=== PATIENT | male | born 1995 | race Two or more races ===

== ENCOUNTER 2021-09-08 03:06 | Emergency (ER) | payer MEDICAID ==
[~2021-09-08] VITALS: Ht 167.6 cm; Wt 136.1 kg
[2021-09-08] MEDS ORDERED: KETOROLAC TROMETH 60MG/2ML VIAL IM ONE (07:15)
[2021-09-08 07:35] VITALS: BP 132/76
== END 2021-09-08 07:48 | disposition home or self-care (01) ==
LOC: ER 03:06
DX: S52.121A Displaced fracture of head of right radius, initial encounter for closed fracture (principal); S80.01XA Contusion of right knee, initial encounter; S00.83XA Contusion of other part of head, initial encounter; W18.39XA Other fall on same level, initial encounter; Y93.89 Activity, other specified; Y92.89 Other specified places as the place of occurrence of the external cause; Y99.8 Other external cause status
CPT/HCPCS: 29105; 70140; 73020; 73060; 73070; 73090; 73560; 73590; 96372; 99284; J1885

== ENCOUNTER 2022-01-12 22:19 | Inpatient (IN) | payer MEDICAID ==
[~2022-01-12] VITALS: Ht 177.8 cm; Wt 181.0 kg
[2022-01-12] MEDS ORDERED: ACETAMINOPHEN 325 MG TAB PO ONE ×2 (22:45)
[2022-01-12] MEDS ORDERED: SODIUM CHLORIDE 0.9% 1,000 ML IV ONE (22:45)
[2022-01-12 23:04] LABS: Basophils # (auto) 0 10 ^3/uL (0-0.2); Basophils % (auto) 0.3 % (0.0-2.0); Eosinophils # (auto) 0 10 ^3/uL (0-0.8); Eosinophils % (auto) 0.3 % (0.0-7.0); Hematocrit 43.4 % (41.0-53.0); Hemoglobin 14.1 g/dL (13.5-17.5); Lymphocytes % (auto) 5.8 % (10.0-50.0); Mean Corpuscular Hemoglobin 24.9 pg (28.0-32.0); Mean Corpuscular Hgb Conc. 32.4 g/dL (32.0-36.0); Mean Corpuscular Volume 76.8 fL (80.0-100.0); Monocytes # (auto) 1.1 10 ^3/uL (0-1.3); Monocytes % (auto) 6.5 % (0.0-12.0); Neutrophils # (auto) 15.3 10 ^3/uL (1.6-8.6); Neutrophils % (auto) 87.1 % (37.0-80.0); Nucleated Red Blood Cells % 0.2 %; Red Blood Cells 5.65 10^6/uL (4.5-5.90); Red Cell Distribution Width 18.5 % (11.8-14.3); White Blood Cell 17.5 10^3/uL (4.4-10.8)
[2022-01-12 23:23] LABS: Albumin 3.1 g/dL (3.4-5.0); BUN/Creatinine Ratio 12.9; Calcium 8.6 mg/dL (8.5-10.1); Magnesium 1.8 mg/dL (1.6-2.6); Potassium 3.4 mmol/L (3.5-5.1)
[2022-01-12 23:29] LABS: Bilirubin, Total 0.4 mg/dL (0.2-1.0); Total Protein 7.5 g/dL (6.4-8.2)
[2022-01-13 01:12] LABS: Lactic Acid w/Reflex 2.8 mmol/L (0.4-2.0)
[2022-01-13] MEDS ORDERED: SODIUM CHLORIDE 0.9% 1,000 ML IV ONE (01:15)
[2022-01-13] MEDS ORDERED: PIPERACILLIN-TAZOB 2.25GM 50 ML IV ONE (02:15)
[2022-01-13] MEDS ORDERED: VANCOMYCIN 1GM/250ML 250 ML IV ONE ×2 (02:15)
[2022-01-13 03:19] LABS: Urine Bacteria NONE SEEN /hpf (None Seen); Urine Blood Negative /uL (Negative); Urine Hyaline Cast MOD /lpf (0 - 2); Urine Mucus FEW (None Seen); Urine Specific Gravity 1.023 (1.001-1.035); Urine WBC 66 /hpf (0 - 3)
[2022-01-13] MEDS ORDERED: ACETAMINOPHEN 325 MG TAB PO ONE (06:30)
[2022-01-13] MEDS ORDERED: ONDANSETRON HCL 4 MG/2 ML VIAL IV PRN (07:15)
[2022-01-13] MEDS ORDERED: MORPHINE SULFATE INJECTION 2 MG/ML SYRG IV PRN (07:15)
[2022-01-13] MEDS ORDERED: VANCOMYCIN PER PHARMACY 0 MG IV SCH (07:15)
[2022-01-13] MEDS ORDERED: ACETAMINOPHEN 325 MG TAB PO PRN (07:15)
[2022-01-13] MEDS ORDERED: NITROGLYCERIN 0.4 MG SL TAB SL PRN (07:15)
[2022-01-13] MEDS ORDERED: ENOXAPARIN SOD 40 MG/0.4 ML SYRINGE SC SCH (10:00)
[2022-01-13] MEDS: PIPERACILLIN-TAZOB 3.375GM 100 ML IV SCH ×3 (10:00→21:21)
[2022-01-13 10:08] VITALS: BP 131/82
[2022-01-13 10:28] VITALS: BP 113/82
[2022-01-13 12:00] VITALS: BP 130/70
[2022-01-13 12:00] LABS: BUN/Creatinine Ratio 15.4; Calcium 7.9 mg/dL (8.5-10.1); Potassium 3.7 mmol/L (3.5-5.1)
[2022-01-13] MEDS: METOPROLOL TARTRATE 25 MG TAB PO SCH ×2 (12:00→21:21)
[2022-01-13] MEDS: ACETAMINOPHEN 325 MG TAB PO PRN ×3 (12:09→21:22)
[2022-01-13 12:27] LABS: Basophils # (auto) 0 10 ^3/uL (0-0.2); Basophils % (auto) 0.3 % (0.0-2.0); Eosinophils # (auto) 0 10 ^3/uL (0-0.8); Hematocrit 39.8 % (41.0-53.0); Hemoglobin 12.8 g/dL (13.5-17.5); Lymphocytes # (auto) 0.6 10 ^3/uL (0.4-5.4); Lymphocytes % (auto) 3.5 % (10.0-50.0); Mean Corpuscular Hemoglobin 24.6 pg (28.0-32.0); Mean Corpuscular Hgb Conc. 32.1 g/dL (32.0-36.0); Mean Corpuscular Volume 76.9 fL (80.0-100.0); Monocytes # (auto) 0.8 10 ^3/uL (0-1.3); Monocytes % (auto) 4.5 % (0.0-12.0); Neutrophils # (auto) 16.5 10 ^3/uL (1.6-8.6); Neutrophils % (auto) 91.7 % (37.0-80.0); Nucleated Red Blood Cells % 0.1 %; Red Blood Cells 5.18 10^6/uL (4.5-5.90)
[2022-01-13] MEDS: METOPROLOL TARTRATE 1MG/1ML-5ML VIAL IV PRN (12:27)
[2022-01-13] MEDS: FUROSEMIDE 40 MG/4 ML VIAL IV SCH (13:45)
[2022-01-13 16:00] VITALS: BP 144/90
[2022-01-13] MEDS: VANCOMYCIN 1GM/250ML 250 ML IV SCH (17:00)
[2022-01-13 22:00] VITALS: BP 120/57
[2022-01-14] MEDS ORDERED: VANCOMYCIN 1GM/250ML 250 ML IV ONE (02:14)
[2022-01-14] MEDS: VANCOMYCIN 1GM/250ML 250 ML IV SCH ×2 (02:47→17:00)
[2022-01-14] MEDS: PIPERACILLIN-TAZOB 3.375GM 100 ML IV SCH ×5 (04:05→21:25)
[2022-01-14 05:00] VITALS: BP 119/49
[2022-01-14] MEDS: METOPROLOL TARTRATE 1MG/1ML-5ML VIAL IV PRN (05:02)
[2022-01-14] MEDS: ACETAMINOPHEN 325 MG TAB PO PRN ×3 (05:48→19:12)
[2022-01-14 07:58] LABS: Albumin 2.5 g/dL (3.4-5.0); Calcium 8.1 mg/dL (8.5-10.1)
[2022-01-14 08:00] VITALS: BP 114/95
[2022-01-14 08:01] LABS: BUN/Creatinine Ratio 14.1; Bilirubin, Total 0.7 mg/dL (0.2-1.0); Total Protein 7.4 g/dL (6.4-8.2)
[2022-01-14 08:14] LABS: Potassium 3.4 mmol/L (3.5-5.1)
[2022-01-14 08:34] LABS: Basophils # (auto) 0.1 10 ^3/uL (0-0.2); Basophils % (auto) 0.5 % (0.0-2.0); Eosinophils # (auto) 0 10 ^3/uL (0-0.8); Eosinophils % (auto) 0.1 % (0.0-7.0); Hemoglobin 12.9 g/dL (13.5-17.5); Lymphocytes # (auto) 0.9 10 ^3/uL (0.4-5.4); Lymphocytes % (auto) 5.9 % (10.0-50.0); Mean Corpuscular Hemoglobin 25.2 pg (28.0-32.0); Mean Corpuscular Hgb Conc. 33.1 g/dL (32.0-36.0); Mean Corpuscular Volume 76.2 fL (80.0-100.0); Monocytes # (auto) 0.9 10 ^3/uL (0-1.3); Monocytes % (auto) 5.7 % (0.0-12.0); Neutrophils # (auto) 13.4 10 ^3/uL (1.6-8.6); Neutrophils % (auto) 87.8 % (37.0-80.0); Nucleated Red Blood Cells % 0.1 %; Red Blood Cells 5.12 10^6/uL (4.5-5.90); Red Cell Distribution Width 18.8 % (11.8-14.3); White Blood Cell 15.2 10^3/uL (4.4-10.8)
[2022-01-14] MEDS: ENOXAPARIN SOD 40 MG/0.4 ML SYRINGE SC SCH (10:00)
[2022-01-14] MEDS: METOPROLOL TARTRATE 25 MG TAB PO SCH ×3 (10:00→21:25)
[2022-01-14] MEDS: FUROSEMIDE 40 MG/4 ML VIAL IV SCH (10:00)
[2022-01-14 13:00] VITALS: BP 111/64
[2022-01-14 16:54] VITALS: BP 135/84
[2022-01-14 22:00] VITALS: BP 125/88
[2022-01-15] MEDS: ACETAMINOPHEN 325 MG TAB PO PRN ×3 (00:19→17:13)
[2022-01-15] MEDS: VANCOMYCIN 1GM/250ML 250 ML IV SCH ×2 (01:24→10:08)
[2022-01-15] MEDS: PIPERACILLIN-TAZOB 3.375GM 100 ML IV SCH ×2 (03:31→10:08)
[2022-01-15 04:34] VITALS: BP 123/76
[2022-01-15 05:00] VITALS: BP 122/85
[2022-01-15 05:50] LABS: Eosinophils # (auto) 0 10 ^3/uL (0-0.8); Lymphocytes # (auto) 0.9 10 ^3/uL (0.4-5.4); Neutrophils # (auto) 6.6 10 ^3/uL (1.6-8.6); Nucleated Red Blood Cells % 0.1 %
[2022-01-15 05:54] LABS: Basophils # (auto) 0.1 10 ^3/uL (0-0.2); Basophils % (auto) 1.1 % (0.0-2.0); Eosinophils % (auto) 0.2 % (0.0-7.0); Hematocrit 36.2 % (41.0-53.0); Hemoglobin 12.3 g/dL (13.5-17.5); Lymphocytes % (auto) 10.4 % (10.0-50.0); Mean Corpuscular Hemoglobin 25.8 pg (28.0-32.0); Mean Corpuscular Hgb Conc. 33.8 g/dL (32.0-36.0); Mean Corpuscular Volume 76.1 fL (80.0-100.0); Monocytes # (auto) 1.1 10 ^3/uL (0-1.3); Neutrophils % (auto) 75.3 % (37.0-80.0); Red Blood Cells 4.76 10^6/uL (4.5-5.90); Red Cell Distribution Width 18.2 % (11.8-14.3); White Blood Cell 8.8 10^3/uL (4.4-10.8)
[2022-01-15 06:11] LABS: Potassium 3.5 mmol/L (3.5-5.1)
[2022-01-15 06:19] LABS: BUN/Creatinine Ratio 14.1; Calcium 8.9 mg/dL (8.5-10.1)
[2022-01-15 09:00] VITALS: BP 118/59
[2022-01-15] MEDS: ENOXAPARIN SOD 40 MG/0.4 ML SYRINGE SC SCH (10:06)
[2022-01-15] MEDS: FUROSEMIDE 40 MG/4 ML VIAL IV SCH (10:07)
[2022-01-15] MEDS: METOPROLOL TARTRATE 25 MG TAB PO SCH ×2 (10:07→21:38)
[2022-01-15] MEDS: levoFLOXacin 500MG 100 ML IV SCH (11:30)
[2022-01-15 12:55] VITALS: BP 113/69
[2022-01-15 17:00] VITALS: BP 105/57
[2022-01-15 22:27] VITALS: BP 117/61
[2022-01-16] MEDS: ACETAMINOPHEN 325 MG TAB PO PRN ×2 (03:13→09:27)
[2022-01-16 05:06] VITALS: BP 110/56
[2022-01-16 06:34] LABS: Basophils # (auto) 0 10 ^3/uL (0-0.2); Basophils % (auto) 0.3 % (0.0-2.0); Eosinophils # (auto) 0 10 ^3/uL (0-0.8); Eosinophils % (auto) 0.3 % (0.0-7.0); Hematocrit 37.7 % (41.0-53.0); Hemoglobin 12.4 g/dL (13.5-17.5); Lymphocytes # (auto) 1.1 10 ^3/uL (0.4-5.4); Lymphocytes % (auto) 15.3 % (10.0-50.0); Mean Corpuscular Hemoglobin 25.3 pg (28.0-32.0); Mean Corpuscular Hgb Conc. 32.9 g/dL (32.0-36.0); Mean Corpuscular Volume 76.9 fL (80.0-100.0); Monocytes # (auto) 1.3 10 ^3/uL (0-1.3); Monocytes % (auto) 17.9 % (0.0-12.0); Neutrophils # (auto) 4.9 10 ^3/uL (1.6-8.6); Neutrophils % (auto) 66.2 % (37.0-80.0); Nucleated Red Blood Cells % 0.1 %; Red Blood Cells 4.91 10^6/uL (4.5-5.90); Red Cell Distribution Width 18.4 % (11.8-14.3); White Blood Cell 7.4 10^3/uL (4.4-10.8)
[2022-01-16 06:52] LABS: Potassium 3.5 mmol/L (3.5-5.1)
[2022-01-16 06:57] LABS: BUN/Creatinine Ratio 16.2; Calcium 8.8 mg/dL (8.5-10.1)
[2022-01-16 09:00] VITALS: BP 128/78
[2022-01-16] MEDS: METOPROLOL TARTRATE 25 MG TAB PO SCH ×2 (09:28→22:36)
[2022-01-16] MEDS: ENOXAPARIN SOD 40 MG/0.4 ML SYRINGE SC SCH (09:30)
[2022-01-16] MEDS: FUROSEMIDE 40 MG/4 ML VIAL IV SCH (09:30)
[2022-01-16] MEDS: levoFLOXacin 500MG 100 ML IV SCH (09:31)
[2022-01-16 12:58] VITALS: BP 148/89
[2022-01-16] MEDS ORDERED: LEVO500T31 PO (14:28)
[2022-01-16] MEDS ORDERED: FURO1TAB31 PO (14:28)
[2022-01-16] MEDS ORDERED: MET25T PO (14:28)
[2022-01-16 16:48] VITALS: BP 134/82
[2022-01-16 17:40] VITALS: BP 134/82
[2022-01-16 21:59] VITALS: BP 135/75
[2022-01-16] MEDS ORDERED: ACETAMINOPHEN 325 MG TAB PO PRN (22:45)
[2022-01-17 04:55] VITALS: BP 143/82
[2022-01-17 05:10] LABS: Hemoglobin 11.7 g/dL (13.5-17.5)
[2022-01-17 05:12] LABS: Hematocrit 34.9 % (41.0-53.0); Mean Corpuscular Hemoglobin 25.4 pg (28.0-32.0); Mean Corpuscular Hgb Conc. 33.4 g/dL (32.0-36.0); Red Blood Cells 4.59 10^6/uL (4.5-5.90); Red Cell Distribution Width 18.5 % (11.8-14.3); White Blood Cell 8.3 10^3/uL (4.4-10.8)
[2022-01-17 05:16] LABS: Basophils % (manual) 0 (0.0-2.0); Blast Cells 0; Metamyelocytes % 0; Promyelocytes % 0; Reactive Lymphocytes 0
[2022-01-17 05:33] LABS: Calcium 8.4 mg/dL (8.5-10.1); Potassium 3.2 mmol/L (3.5-5.1)
[2022-01-17 05:35] LABS: BUN/Creatinine Ratio 16.9
[2022-01-17 06:44] LABS: Band Neutrophils % (manual) 7; Eosinophils % (manual) 1 (0-7); Monocytes % (manual) 18 (0-12); Myelocytes % 1
[2022-01-17 06:45] LABS: Lymphocytes % (manual) 18 (10.0-50.0)
[2022-01-17 09:00] VITALS: BP 125/79
[2022-01-17] MEDS: METOPROLOL TARTRATE 25 MG TAB PO SCH ×2 (09:26→21:50)
[2022-01-17] MEDS: FUROSEMIDE 40 MG/4 ML VIAL IV SCH (09:27)
[2022-01-17] MEDS: ENOXAPARIN SOD 40 MG/0.4 ML SYRINGE SC SCH (09:27)
[2022-01-17] MEDS: levoFLOXacin 500MG 100 ML IV SCH (09:28)
[2022-01-17 13:00] VITALS: BP 133/78
[2022-01-17 17:00] VITALS: BP 133/78
[2022-01-17 22:00] VITALS: BP 120/65
[2022-01-18 05:00] VITALS: BP 121/66
[2022-01-18 06:26] LABS: Basophils # (auto) 0 10 ^3/uL (0-0.2); Eosinophils # (auto) 0.1 10 ^3/uL (0-0.8); Lymphocytes # (auto) 1.6 10 ^3/uL (0.4-5.4)
[2022-01-18 06:29] LABS: Basophils % (auto) 0.3 % (0.0-2.0); Eosinophils % (auto) 0.8 % (0.0-7.0); Hematocrit 35.8 % (41.0-53.0); Lymphocytes % (auto) 19.7 % (10.0-50.0); Mean Corpuscular Hemoglobin 25.7 pg (28.0-32.0); Mean Corpuscular Hgb Conc. 33.6 g/dL (32.0-36.0); Mean Corpuscular Volume 76.7 fL (80.0-100.0); Monocytes # (auto) 1.4 10 ^3/uL (0-1.3); Monocytes % (auto) 16.8 % (0.0-12.0); Neutrophils # (auto) 5.1 10 ^3/uL (1.6-8.6); Neutrophils % (auto) 62.4 % (37.0-80.0); Red Blood Cells 4.68 10^6/uL (4.5-5.90); Red Cell Distribution Width 18.4 % (11.8-14.3); White Blood Cell 8.2 10^3/uL (4.4-10.8)
[2022-01-18 07:01] LABS: Potassium 3.4 mmol/L (3.5-5.1)
[2022-01-18 09:00] VITALS: BP 155/88
[2022-01-18] MEDS: levoFLOXacin 500MG 100 ML IV SCH (09:50)
[2022-01-18] MEDS: FUROSEMIDE 40 MG/4 ML VIAL IV SCH (09:50)
[2022-01-18] MEDS: ENOXAPARIN SOD 40 MG/0.4 ML SYRINGE SC SCH (09:51)
[2022-01-18] MEDS: METOPROLOL TARTRATE 25 MG TAB PO SCH (09:51)
[2022-01-18 13:00] VITALS: BP 138/88
[2022-01-18 17:00] VITALS: BP 119/64
== END 2022-01-18 19:40 | disposition home health service (06) | DRG 720 ==
LOC: EDBD 22:19 → ER 22:19 → TELE 01-13 07:01 → TELE-CENTR 01-13 10:10
PROVIDERS: ADMIT Hospitalist; ATTEND Internal Medicine
DX: A41.9 Sepsis, unspecified organism (principal); J96.01 Acute respiratory failure with hypoxia; I50.33 Acute on chronic diastolic (congestive) heart failure; I47.1 Supraventricular tachycardia; N39.0 Urinary tract infection, site not specified; Z20.822 Contact with and (suspected) exposure to COVID-19; E66.2 Morbid (severe) obesity with alveolar hypoventilation; Z68.43 Body mass index [BMI] 50.0-59.9, adult
CPT/HCPCS: 36415; 80048; 80053; 80202; 81001; 83605; 83735; 83880; 84484; 85007; 85025; 85027; 87040; 87086; 93306; 93970; 96361; 96365; 96366; 96368; 96375; 97163; G0378; J1956; J2405; J2543

== ENCOUNTER 2024-05-17 15:46 | Emergency (ER) | payer MEDICAID ==
[~2024-05-17] VITALS: Ht 177.8 cm; Wt 195.7 kg
[~2024-05-17 15:46] MED LIST: FURO1TAB31 PO; LEVO500T31 PO; MET25T PO
[2024-05-17 16:22] VITALS: BP 163/96; PULSE 120; RESP 20; TEMP 97.8; O2SAT 95
[2024-05-17] MEDS: KETOROLAC TROMETH 60MG/2ML VIAL IM ONE (17:03)
[2024-05-17] MEDS ORDERED: LISI20TA56 PO (17:43)
== END 2024-05-17 17:46 | disposition home or self-care (01) ==
LOC: ER 15:55
DX: G89.29 Other chronic pain (principal); M54.50 Low back pain, unspecified; M79.662 Pain in left lower leg; F22 Delusional disorders; I10 Essential (primary) hypertension; Z76.0 Encounter for issue of repeat prescription
CPT/HCPCS: 93971; 96372; 99285; J1885

== ENCOUNTER 2024-12-18 15:02 | Inpatient (IN) | payer MEDICAID ==
[~2024-12-18] VITALS: Ht 177.8 cm; Wt 195.6 kg
[~2024-12-18 15:02] MED LIST changes: +LISI20TA56 PO
--- NOTE | 2024-12-18 15:38 | ED.PDOC ---
History of Present Illness HPI Comments This is a 29-year-old male who comes in with chief complaint of high blood pressure. The patient has saw the primary care doctor today and was referred to the emergency department's for further evaluation. The patient states that he has been having some lower leg swelling but when they arrived at the doctor, the patient was blood pressure was significantly elevated. Chief Complaint: High Blood Pressure Time Seen by MD: 15:13 Reviewed Notes: Nurses Notes, Medications, Allergies (No allergies) Allergies: Coded Allergies: NO KNOWN ALLERGIES (Unverified , 09/08/21) Home Meds Active Scripts Lisinopril (Lisinopril) 20 Mg Tab, 1 TAB PO DAILY, #30 TAB Prov:CONNOR MASSEY 05/17/24 Furosemide (Lasix) 40 Mg Tab, 40 MG PO DAILY, #30 TAB Prov:RITCHIE GRIDER MD 01/16/22 Metoprolol Tartrate (Lopressor) 25 Mg Tb, 12.5 MG PO BID, #15 TAB Prov:RITCHIE GRIDER MD 01/16/22 Levofloxacin (Levaquin) 500 Mg Tab, 500 MG PO DAILY, #10 TAB Prov:RITCHIE GRIDER MD 01/16/22 Information Source: Patient Mode of Arrival: Ambulatory Severity: Moderate Timing: Hours Duration: Since onset Prehospital treatment: None Location: Leg swelling with shortness a breath Past Medical History PAST MEDICAL HISTORY: CHF, HTN, Denies Surgical History: Denies all surgeries Family History Family History: Reviewed,noncontributory to illness Social History Smoker: Non-Smoker Alcohol: Denies ETOH Use Drugs: Denies Drug Use Lives In: Home Constitutional: reports: weakness; denies: chills, diaphoresis, fatigue, fever, malaise, sweats, others EENTM: denies: blurred vision, double vision, ear bleeding, ear discharge, ear drainage, ear pain, ear ringing, eye pain, eye redness, hearing loss, mouth pain, mouth swelling, nasal discharge, nose bleeding, nose congestion, nose pain, photophobia, tearing, throat pain, throat swelling, voice changes, others Respiratory: reports: shortness of breath; denies: cough, hemoptysis, orthopnea, SOB at rest, SOB with excertion, stridor, wheezing, others Cardiovascular: denies: chest pain, dizzy spells, diaphoresis, Dyspnea on exertion, edema, irregular heart beat, left arm pain, lightheadedness, palpitations, PND, syncope, others Gastrointestinal: denies: abdomen distended, abdominal pain, blood streaked bowels, constipated, diarrhea, dysphagia, difficulty swallowing, hematemesis, melena, nausea, poor appetite, poor fluid intake, rectal bleeding, rectal pain, vomiting, others Genitourinary: denies: burning, dysuria, flank pain, frequency, hematuria, incontinence, penile discharge, penile sore, pain, testicle pain, testicle swelling, urgency, others Neurological: denies: dizziness, fainting, headache, left sided numbness, left sided weakness, numbness, paresthesia, pre-existing deficit, right sided numbness, right sided weakness, seizure, speech problems, tingling, tremors, weakness, others Musculoskeletal: reports: others (Leg swelling); denies: back pain, gout, joint pain, joint swelling, muscle pain, muscle stiffness, neck pain Integumetry: denies: bruises, change in color, change in hair/nails, dryness, laceration, lesions, lumps, rash, wounds, others Allergic/Immunocompromised: denies: Difficulty Healing, Frequent Infections, Hives, Itching, others Hematologic/Lymphatic: denies: anemia, blood clots, easy bleeding, easy bruising, swollen glands, others Endocrine: denies: excessive hunger, excessive sweating, excessive thirst, excessive urination, flushing, intolerance to cold, intolerance to heat, unexplained weight gain, unexplained weight loss, others Psychiatric: denies: anxiety, bipolar disorder, depression, hopeless, panic disorder, schizophrenia, sleepless, suicidal, others All Other Systems: Reviewed and Negative Physical Exam General Appearance: Moderate Distress, Obese HEENT: Normal ENT Inspection, Pharynx Normal, TMs Normal Neck: Full Range of Motion, Non-Tender, Normal, Normal Inspection Respiratory: Chest Non-Tender, Lungs Clear, No Accessory Muscle Use, No Respiratory Distress, Normal Breath Sounds Cardiovascular: No Edema, No JVD, No Murmur, No Gallop, Normal Peripheral Pulses, Regular Rate/Rhythm Breast Exam: Deferred Gastrointestinal: No Organomegaly, Non Tender, No Pulsatile Mass, Normal Bowel Sounds, Soft Genitalia: Deferred Pelvic: Deferred Rectal: Deferred Extremities: Decreased range of motion, No calf tenderness, Normal capillary refill, Pedal edema Musculoskeletal : Apperance: Normal Neurologic: Alert, 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 Was a procedure done?: No EKG EKG : Pulse Rate (adult): 94 Prim: LAD Cardiac Rhythm: NSR Block: None ST: Nonsp Differential Dx Considerations may include: Accelerated hypertension, acute on chronic diastolic heart failure, ACS, DC X-Ray, Labs, Meds, VS Vital Signs Date Time Temp Pulse Resp B/P (MAP) Pulse Ox O2 Delivery O2 Flow Rate FiO2 12/18/24 17:06 94 12/18/24 16:53 99 16 98 Room Air* 0 21 12/18/24 16:36 186/111 12/18/24 16:09 99 20 94 Room Air 12/18/24 16:09 99.0 99 20 194/122 (146) 94 99.0 12/18/24 16:08 194/122 12/18/24 15:46 99.0 101 18 172/100 (124) 94 Lab Test 12/18/24 16:40 12/18/24 15:57 Range/Units White Blood Count Pending Red Blood Count Pending Hemoglobin Pending Hematocrit Pending Mean Corpuscular Volume Pending Mean Corpuscular Hemoglobin Pending Mean Corpuscular Hemoglobin Concent Pending Red Cell Distribution Width Pending Platelet Count Pending Mean Platelet Volume Pending Neutrophils (%) (Auto) Pending Lymphocytes (%) (Auto) Pending Monocytes (%) (Auto) Pending Basophils (%) (Auto) Pending Neutrophils # (Auto) Pending Lymphocytes # (Auto) Pending Monocytes # (Auto) Pending Sodium Level 141 136-145 mmol/L Potassium Level 4.5 3.5-5.1 mmol/L Chloride Level 103 98-107 mmol/L Carbon Dioxide Level 32 H 20-31 mmol/L Anion Gap 6 5-15 Blood Urea Nitrogen 10 9-23 mg/dL Creatinine 0.67 L 0.700-1.30 mg/dL Glomerular Filtration Rate Calc 128 >90 mL/min BUN/Creatinine Ratio 14.9 10.0-20.0 Serum Glucose 98 74-106 mg/dL Calcium Level 9.8 8.7-10.4 mg/dL B-Type Natriuretic Peptide 7.37 0-100 pg/mL Current Medications Medications (Trade) Dose Ordered Sig/Capri Route Start Time Stop Time Status Last Admin Furosemide (Lasix Injection) 40 mg ONCE ONCE IV 12/18/24 15:30 12/18/24 15:31 DC 12/18/24 16:36 Clonidine HCl (Catapres Tablet) 0.2 mg ONCE ONCE PO 12/18/24 15:30 12/18/24 15:31 DC 12/18/24 16:08 CHEST RADIOGRAPH IMPRESSION: Pulmonary vascular congestion The patient was given Lasix 40 mg IV push The patient was also given clonidine 0.2 mg by mouth The patient had an elevated blood pressure and it still remains elevated The patient will be admitted with a diagnosis of acute on chronic diastolic heart failure The patient was also being admitted with accelerated hypertension Images Reviewed?: Images reviewed and evaluated by me Time of 1ST Reevaluation: 15:45 Reevaluation 1ST: Unchanged Patient Education/Counseling: Diagnosis, Treatment, Prognosis Family Education/Counseling: Diagnosis, Treatment, Prognosis Additional Information - I reviewed the following notes from patient's past medical encounters: - The following tests were ordered, and results were reviewed by me: (Labs, X- Ray, EKG): cbc, bmp, ua, chest x-ray, ekg x3 - Additional information was gathered from interviewing the following independent Historian: (Family, Other Providers, EMT): family member - I reviewed and agreed with the following test results read by other provider: (X-ray, CT, US): radiologist - I discussed treatments and results with medical personnel and: (consultants, family): none Departure 1 Departure Time of Disposition: 16:40 Impression: Primary Impression: Acute on chronic diastolic heart failure Disposition: 09 ADMITTED INPATIENT Admit to: Tele Condition: Fair Critical Care Note Critical Care Time?: Yes (45 min-critical care time only) Stability Stability form required: Yes Unstable for transfer: Telemetry monitoring (Telemetry monitoring required), ED Physician Assesment (Clinical assesment) Heart Score Heart Score: Heart Score Response (Comments) Value History Moderate Suspicious 1 EKG Repolarization Disturb 1 Age <45 0 Risk Factors >3 or Hx ASHD 2 Troponin Normal limit 0 Total 4 I personally scribed for LAN,LALA B MD ([email or web address]) on 12/18/24 at 15:47. Electronically submitted by Hilton Saldana ([email or web address]). LALA MONTENEGRO MD Dec 18, 2024 15:38
--- NOTE | 2024-12-18 15:42 | DVH ---
CHEST RADIOGRAPH Indication: sob Technique: Single frontal view of the chest was obtained COMPARISON: CHEST PORTABLE on DOS: 01/12/22 FINDINGS: Lines and Tubes: None Lungs: Congestion Pleura: No effusion. No pneumothorax. Cardiomediastinal contours: Cardiomegaly Bones: Unremarkable IMPRESSION: Pulmonary vascular congestion
[2024-12-18] MEDS: cloNIDine HCL 0.1 MG TAB PO ONE (16:08)
[2024-12-18] MEDS: FUROSEMIDE 40 MG/4 ML VIAL IV ONE ×2 (16:36→23:57)
[2024-12-18 16:41] LABS: Chloride 103 mmol/L (98-107); Potassium 4.5 mmol/L (3.5-5.1)
[2024-12-18 16:42] LABS: Calcium 9.8 mg/dL (8.7-10.4)
[2024-12-18 16:46] LABS: Glucose 98 mg/dL (74-106)
[2024-12-18 16:47] LABS: BUN/Creatinine Ratio 14.9 (10.0-20.0); Blood Urea Nitrogen 10 mg/dL (9-23)
[2024-12-18 16:50] LABS: Carbon Dioxide 32 mmol/L (20-31)
[2024-12-18 16:51] LABS: Anion Gap 6 (5-15); Sodium 141 mmol/L (136-145)
[2024-12-18 16:53] VITALS: PULSE 99; RESP 16; O2SAT 98
[2024-12-18 17:42] LABS: Basophils # (auto) 0.1 10 ^3/uL (0-0.2); Basophils % (auto) 1.4 % (0.0-2.0); Eosinophils # (auto) 0.2 10 ^3/uL (0-0.8); Eosinophils % (auto) 2.1 % (0.0-7.0); Hematocrit 46.7 % (41.0-53.0); Lymphocytes # (auto) 1.4 10 ^3/uL (0.4-5.4); Lymphocytes % (auto) 17.1 % (10.0-50.0); Mean Corpuscular Hgb Conc. 32.1 g/dL (32.0-36.0); Monocytes # (auto) 0.7 10 ^3/uL (0-1.3); Monocytes % (auto) 8.5 % (0.0-12.0); Neutrophils # (auto) 5.8 10 ^3/uL (1.6-8.6); Neutrophils % (auto) 70.9 % (37.0-80.0); Nucleated Red Blood Cells % 0.1 %; Platelet Count (auto) 289 10^3/uL (140-450); Red Blood Cells 5.77 10^6/uL (4.5-5.90); Red Cell Distribution Width 16.1 % (11.8-14.3); White Blood Cell 8.2 10^3/uL (4.4-10.8)
[2024-12-18] MEDS ORDERED: NITROGLYCERIN 0.4 MG SL TAB SL PRN (21:15)
[2024-12-18] MEDS ORDERED: DOCUSATE SOD 100 MG CAP PO PRN (21:15)
[2024-12-18] MEDS ORDERED: ONDANSETRON HCL 4 MG/2 ML VIAL IV PRN (21:15)
[2024-12-18] MEDS ORDERED: ACETAMINOPHEN 325 MG TAB PO PRN (21:15)
[2024-12-18] MEDS ORDERED: MORPHINE SULFATE INJ 2 MG/ml SYRG IV PRN ×2 (21:15)
[2024-12-18] MEDS ORDERED: hydrALAZINE HCL 20 MG/ML VL IV PRN (21:30)
--- NOTE | 2024-12-18 22:31 | DVHHPRES ---
History of Present Illness Resident Creating Document: ADRIANA BENJAMIN RESIDENT History of Present Illness HUSEYIN ROMANO is a 29-year-old male with a PMH of CHF, HTN, sciatica presented to the ED with the chief complaints of increased blood pressure. Patient is Kinyarwanda-speaking, history obtained from friend. Today patient went to visit primary care doctor, while measuring vitals the blood pressure showed very high, referred him to ED for further evaluation and management. Patient reported he diagnosed with hypertension and CHF 6 years ago and he has been on medications. But recently patient has been having increased blood pressure associated with nosebleeds, morning headaches, dizziness, palpitations and lately patient has been having urgency incontinence. Today on my assessment patient denies fever, nausea, vomiting, diarrhea, chest pain, difficulty breathing, and other acute associated symptoms. Patient reported recently he has been gaining weight r apidly and the limiting him to do his daily household activities. PMH: HTN, CHF for 6 years, sciatica PSH: Denies Family history: CVA, BP, DM in dad, HTN in mother Social history: Lives with family. Denies smoking, alcohol and other drug abuse Allergies: No known allergies Home medications: Unable to recall Review of Systems Constitutional: No: Fever, Chills, Sweats, Weakness, Malaise, Other Eyes: No: Pain, Vision change, Conjunctivae inflammation, Eyelid inflammation, Other, Redness ENT: No: Ear pain, Ear discharge, Nose pain, Nose discharge, Nose congestion, Mouth pain, Mouth swelling, Throat pain, Throat swelling, Other Respiratory: No: Cough, Dry, Shortness of breath, SOB with excertion, Wheezing, Hemoptysis, Pleuritic Pain, Sputum, Wheezing, Other Cardiovascular: No: Chest Pain, Palpitations, Orthopnea, Paroxysmal Noc. Dyspnea, Edema, Lt Headedness, Other Gastrointestinal: No: Nausea, Vomiting, Abdominal Pain, Diarrhea, Constipation, Melena, Hematochezia, Other Genitourinary: Incontinence Musculoskeletal: back pain, leg pain (Sciatica) Neurological: Other (DX) Allergies: Coded Allergies: NO KNOWN ALLERGIES (Unverified , 09/08/21) Medications Current Medications Medications Dose Ordered Sig/Capri Route Start Time Stop Time Status Last Admin Dose Admin Sodium Chloride 10 ml Q8HR IV 12/18/24 22:00 Ondansetron HCl 4 mg Q4HP PRN IV 12/18/24 21:15 Docusate Sodium 100 mg BIDPRN PRN PO 12/18/24 21:15 Enoxaparin Sodium 40 mg DAILY SC 12/19/24 10:00 Acetaminophen 650 mg Q6HP PRN PO 12/18/24 21:15 Morphine Sulfate 2 mg Q4HPRN PRN IV 12/18/24 21:15 Nitroglycerin 0.4 mg Q5MINP PRN SL 12/18/24 21:15 Morphine Sulfate 2 mg Q30M PRN IV 12/18/24 21:15 Hydralazine HCl 10 mg Q5HP PRN IV 12/18/24 21:30 Furosemide 40 mg DAILY IV 12/19/24 10:00 Exam Vital Signs Vital Signs Date Time Temp Pulse Resp B/P (MAP) Pulse Ox O2 Delivery O2 Flow Rate FiO2 12/18/24 19:17 98.9 95 18 156/104 (121) 94 98.9 12/18/24 16:53 Room Air* 0 21 Exam General Appearance: Alert, Oriented X3, Cooperative, moderate distress HEENT: Atraumatic, Mucous membranes moist/pink Respiratory: Clear to auscultation, Normal air movement Cardiovascular: Regular rate, Normal S1, Normal S2 Abdominal: Active bowel sounds, Soft, no distention, no tenderness Extremities: 3+ pitting edema in BLE. Normal pulses Skin: No Significant rash Neuro: Normal speech, sensorimotor deficits none Psych/Mental Status: Mental status NL, Mood NL Nurse was there as sharperone during examination Labs/Xrays Labs Test 12/18/24 17:23 12/18/24 15:57 Range/Units White Blood Count 8.2 4.4-10.8 10^3/uL Red Blood Count 5.77 4.5-5.90 10^6/uL Hemoglobin 15.0 13.5-17.5 g/dL Hematocrit 46.7 41.0-53.0 % Mean Corpuscular Volume 81.0 80.0-100.0 fL Mean Corpuscular Hemoglobin 26.0 L 28.0-32.0 pg Mean Corpuscular Hemoglobin Concent 32.1 32.0-36.0 g/dL Red Cell Distribution Width 16.1 H 11.8-14.3 % Platelet Count 289 140-450 10^3/uL Mean Platelet Volume 8.3 6.9-10.8 fL Neutrophils (%) (Auto) 70.9 37.0-80.0 % Lymphocytes (%) (Auto) 17.1 10.0-50.0 % Monocytes (%) (Auto) 8.5 0.0-12.0 % Eosinophils (%) (Auto) 2.1 0.0-7.0 % Basophils (%) (Auto) 1.4 0.0-2.0 % Neutrophils # (Auto) 5.8 1.6-8.6 10 ^3/uL Lymphocytes # (Auto) 1.4 0.4-5.4 10 ^3/uL Monocytes # (Auto) 0.7 0-1.3 10 ^3/uL Eosinophils # (Auto) 0.2 0-0.8 10 ^3/uL Basophils # (Auto) 0.1 0-0.2 10 ^3/uL Nucleated Red Blood Cells 0.1 % B-Type Natriuretic Peptide 7.37 0-100 pg/mL Assessment/Plan Assessment/Plan # hypertensive urgency -continuously monitoring blood pressure -given clonidine -ordered hydralazine 10 mg p.r.n. -ordered a.m. cortisol, TSH, kidney ultrasound # morbidly obese with a BMI 68.4 -counseled regarding lifestyle modification -nutritional counseling # possible LUCIAN -outpatient management with the sleep studies -Stop Bang score 5-6 # CHF likely not in exacerbation # BLE pitting edema -currently giving Lasix 40 mg diet -BNP not elevated -ordered echocardiogram # urgency incontinence PUD PPX: Not indicated VTE PPX: Lovenox Diet: Cardiac diet Goals of care discussed with the patient for more than 29 minutes: Full code status Case discussed with Dr. Holm, patient and nurse. Plan discussed with: Patient My Orders Orders - ADRIANA BENJAMIN RESIDENT Procedure Category Date Status Time Admit ADMIT 12/18/24 Transmitted 21:15 Allergies OSMIN 12/18/24 In Process 21:15 Code Status CODE 12/18/24 Transmitted 21:15 2 Gm Sodium Diet DIET 12/19/24 Transmitted Breakfast Sodium Chloride Lock PHA 12/18/24 In Process (Saline Lock Ns) 22:00 Ondansetron Hcl PHA 12/18/24 In Process (Zofran) 21:15 Docusate Sodium PHA 12/18/24 In Process Capsule (Colace 21:15 Enoxaparin Sodium PHA 12/19/24 In Process (Lovenox) 10:00 Complete Blood Count LAB 12/19/24 Verified 04:00 Comprehensive LAB 12/19/24 Verified Metabolic Panel 04:00 Cardiac DIET 12/19/24 Transmitted Diet-2gna,Lofat,Lochol Breakfast Echo 2d Mode Cardiac US 12/18/24 Logged DOP 21:15 Condition: Stable OSMIN 12/18/24 In Process 21:15 Acetaminophen Tablet PHA 12/18/24 In Process (Tylenol Tablet) 21:15 Morphine Sulfate PHA 12/18/24 In Process Injection 21:15 Nitroglycerin PHA 12/18/24 In Process Sublingual (Ntrostat 21:15 Morphine Sulfate PHA 12/18/24 In Process Injection 21:15 Oxygen By Nasal RT 12/18/24 Transmitted Cannula 21:15 Stat Ekg For Chest OSMIN 12/18/24 In Process Pain 21:15 Notify Md Of Changes OSMIN 12/18/24 In Process From Base 21:15 Factory Clerk For OSMIN 12/18/24 In Process 24 Hours 21:15 Emergency Dysrhythmia OSMIN 12/18/24 In Process Protocol 21:15 Rhythm Strips Once OSMIN 12/18/24 In Process Every Shift 21:15 Hydralazine Injection PHA 12/18/24 In Process (Apresoline Inject 21:30 Blood Alcohol LAB 12/18/24 In Process 21:43 Covid19 Antigen Rosangela LAB 12/18/24 Logged Drug Screen LAB 12/18/24 Logged 21:43 Hemoglobin A1c LAB 12/18/24 In Process 21:43 Magnesium LAB 12/18/24 In Process 21:43 Lipid Panel LAB 12/18/24 In Process 21:43 Rapid Influenza A&B LAB 12/18/24 Logged 21:43 Urinalysis LAB 12/18/24 Logged 21:43 Thyroid Stimulating LAB 12/18/24 In Process Hormone 21:43 Cortisol Am LAB 12/18/24 Logged 21:43 Vanillylmandelic Acid LAB 12/18/24 Logged Rdm Ur 21:43 Furosemide Injection PHA 12/19/24 In Process (Lasix Injection) 10:00 Comprehensive LAB 12/18/24 In Process Metabolic Panel 21:54 Renal Artery Comp US 12/18/24 Logged 21:43 Date of Service: Dec 18, 2024 Billing Provider: PERLA HOLM MD Common Visit Codes: 33560-HASROVU INP/OBS CARE (HIGH) ADRIANA BENJAMIN RESIDENT Dec 18, 2024 22:31 PERLA HOLM MD Dec 19, 2024 13:01
[2024-12-18 22:37] LABS: Blood Alcohol 5.3 mg/dL (<10)
[2024-12-18 22:38] LABS: Magnesium 2.2 mg/dL (1.6-2.6)
[2024-12-18 22:39] LABS: Alanine Aminotransferase 22 U/L (7-40); Albumin 4.4 g/dL (3.2-4.8); Alkaline Phosphatase 78 U/L (46-116); Anion Gap 11 (5-15); Aspartate Aminotransferase 15 U/L (13-40); BUN/Creatinine Ratio 14.9 (10.0-20.0); Blood Urea Nitrogen 10 mg/dL (9-23); Calcium 9.8 mg/dL (8.7-10.4); Carbon Dioxide 28 mmol/L (20-31); Chloride 103 mmol/L (98-107); Glucose 99 mg/dL (74-106); Potassium 4.7 mmol/L (3.5-5.1); Sodium 142 mmol/L (136-145)
[2024-12-18 22:40] LABS: Bilirubin, Total 0.4 mg/dL (0.2-1.0); Total Protein 7.8 g/dL (5.7-8.2)
[2024-12-18] MEDS: SODIUM CHLOR 0.9% PF (SALINE LOCK) 10ML VIAL/SYR IV SCH (23:57)
[2024-12-19] VITALS (11 sets, daily range): BP systolic 100–170; BP diastolic 68–109; PULSE 69–108; RESP 19–20; TEMP 97.6–98.2; O2SAT 91–94
--- NOTE | 2024-12-19 00:06 | DVH ---
Bilateral lower extremity venous duplex Clinical History: DVT Comparison: US LT LOWER DVT on DOS: 05/17/24 Technique: Duplex Doppler evaluation of the deep venous systems of both lower extremities from the common femora l veins to the popliteal veins including color Doppler and spectral/pulsed waveform analysis was perf ormed. Findings: Impression: Very limited study. Only bilateral popiteal veins are adequately visualized and demonstrate no eviden ce of thrombus.
[2024-12-19] MEDS: hydrALAZINE HCL 20 MG/ML VL IV SCH (06:40)
[2024-12-19 07:31] LABS: Urine Bacteria FEW /hpf (None Seen); Urine Blood Negative /uL (Negative); Urine Clarity Clear (Clear); Urine Color Yellow (Yellow); Urine Mucus FEW (None Seen); Urine Protein, UAD Negative (Negative); Urine Specific Gravity 1.018 (1.001-1.035); Urine Squamous Epithelial Cell FEW /hpf (<5); Urine Urobilinogen Normal (Negative); Urine WBC 2 /HPF (0-3); Urine pH 5.5 (5.0-9.0)
[2024-12-19 07:43] LABS: Amphetamine Screen, Urine Neg (NEGATIVE); Barbiturate Scree,Urine Neg (NEGATIVE); Benzodiazephine Screen, Urine Neg (NEGATIVE); Cannabinoid Screen, Urine Neg (NEGATIVE); Cocaine Screen, Urine Neg (NEGATIVE); Opiate Scree,Urine Neg (NEGATIVE); Phencyclidine Screen, Urine Neg (NEGATIVE)
[2024-12-19] MEDS: ENOXAPARIN SOD 40 MG/0.4 ML SYRINGE SC SCH (08:31)
[2024-12-19] MEDS: LISINOPRIL 20 MG TAB PO SCH (08:40)
[2024-12-19] MEDS: FUROSEMIDE 40 MG/4 ML VIAL IV SCH (08:42)
[2024-12-19] MEDS: ENALAPRILAT 1.25 MG/ML-1ML VIAL IV ONE (08:44)
[2024-12-19] MEDS ORDERED: FUROSEMIDE 40 MG/4 ML VIAL IV SCH (10:00)
[2024-12-19] MEDS ORDERED: LISINOPRIL 20 MG TAB PO SCH (10:00)
--- NOTE | 2024-12-19 10:01 | DVHPNRES ---
Progress Note Date Seen: Dec 19, 2024 Resident Creating Document: BJ ALEXANDER RESIDENT Medical Necessity Reason Pt with a Central, PICC or Fol: No Subjective Review of Systems This 29-year-old morbidly obese male patient with PMH ex of congestive heart failure, hypertension who was sent to the ER by his PCP for uncontrolled blood pressure and lower extremity swelling/erythema. Patient reports being compliant 2 lisinopril 40 mg and amlodipine 5 mg, reports dyspnea on exertion, orthopnea, and PND for the past couple of weeks which is getting worsening. Does not use oxygen at home. Never had a sleep study done. Says that he is gaining weight in his lower extremities have been swollen and erythematous. His blood pressure was 220/120 at the clinic per patient. Reports morning headaches but denies nausea or vomiting. Also reports urinary incontinence and palpitations. Denies fevers/chills/chest pain. PMH: See above PSH: Unremarkable Social history: Lives with mother, does not work, smoked marijuana in the past, denies alcohol or other drug use Home medication: Lisinopril 40 mg daily, amlodipine 5 mg daily Patient seen and examined at the bedside. Has bilateral 3+ pitting edema and erythema of the tibia bilaterally. Objective vital signs Vital Sign Date Time Temp Pulse Resp B/P (MAP) Pulse Ox O2 Delivery O2 Flow Rate FiO2 12/19/24 09:00 97.7 97 19 137/68 (91) 92 97.7 12/19/24 04:02 Room Air* 0 21 Total Intake and Output 12/18/24 12/18/24 12/19/24 15:00 23:00 07:00 Intake Total 420 ml Output Total 900 ml Balance -480 ml medications Current Medications Medications Dose Ordered Sig/Capri Route Start Time Stop Time Status Last Admin Dose Admin Sodium Chloride 10 ml Q8HR IV 12/18/24 22:00 12/19/24 08:43 10 ML Ondansetron HCl 4 mg Q4HP PRN IV 12/18/24 21:15 Docusate Sodium 100 mg BIDPRN PRN PO 12/18/24 21:15 Enoxaparin Sodium 40 mg DAILY SC 12/19/24 10:00 12/19/24 08:31 40 MG Acetaminophen 650 mg Q6HP PRN PO 12/18/24 21:15 Morphine Sulfate 2 mg Q4HPRN PRN IV 12/18/24 21:15 Nitroglycerin 0.4 mg Q5MINP PRN SL 12/18/24 21:15 Morphine Sulfate 2 mg Q30M PRN IV 12/18/24 21:15 Furosemide 40 mg BIDD IV 12/19/24 08:00 12/19/24 08:42 40 MG Lisinopril 20 mg DAILY PO 12/19/24 07:30 12/19/24 08:40 20 MG Examination Patient lying in bed, in no acute distress, saturating 95 on room air. Limited physical exam given the body habitus General: Morbidly obese, afebrile, palor, mucosae are moist Cardiovascular: Regular S1 and S2. No murmurs, gallops or rubs. No JVD elevation. 3+ bilateral pitting edema Respiratory: Normal B/L air entry on room air. Decreased bilateral lung sounds on auscultation Abdomen: Soft, nontender, nondistended, normoactive bowel sounds, no rebound tenderness, no organomegaly, no masses Genitourinary: Deferred MSK/skin: Mobilizes 4 limbs. Skin is dry and warm. Bilateral garcia are erythematous and swollen. Neurological: No motor, no sensitive deficits, normal speech. Pupils are isocoric and reactive. Psych/Mental Status: A/Ox3 laboratory and microbiology Laboratory Tests 12/18/24 17:23 12/18/24 15:57 Test 12/18/24 15:57 Range/Units Serum Glucose 99 74-106 mg/dL Labs and/or images reviewed: Labs reviewed by me, Image(s) reviewed by me Problem List/Assessment/Plan Problem List/Assessment/Plan Sirs secondary to end-organ damage with pulmonary edema secondary to Hypertensive emergency Pulmonary edema Acute on chronic diastolic Congestive heart failure exacerbation- NYHA class 3 ? LUCIAN Patient received clonidine and hydralazine 1 dose by the admitting physician Lasix IV 40 mg b.i.d. Enalapril p.r.n. Started home medication Lisinopril 40 mg daily DC medication amlodipine 5 mg daily given lower extremity swelling EKG completed, shows sinus rhythm Telemetry reviewed, shows PVCs but otherwise sinus rhythm and intermittent sinus tachycardia Patient needs outpatient sleep study CPAP at nighttime Renal ultrasound pending A.m. cortisol TSH within normal limits Echocardiogram lvef 65%, normal LV function, normal RV function, normal atria, no severe valve abnormalities noted On fluid restrictions and strict I&Os Intermittent urinary incontinence Outpatient workup advised Morbid obesity Counseled regarding lifestyle and dietary modifications Vitamin-D deficiency Supplemented Diet: Cardiac diet DVT prophylaxis: Lovenox 40 mg sc daily Goals of care discussed with the patient for more than 27 minute, full code status Plan discussed with patient in which all questions have been answered Case discussed with Dr. Castro Plan discussed with: Patient My Orders My Orders Orders - BJ ALEXANDER Procedure Category Date Status Time Furosemide Injection PHA 12/19/24 In Process (Lasix Injection) 08:00 Troponin-I Hs LAB 12/19/24 Logged 07:14 PTPTT LAB 12/19/24 Logged 07:14 Vitamin D, 25-Hydroxy LAB 12/19/24 Logged 07:14 Vitamin B12 LAB 12/19/24 Logged 07:14 Lisinopril Tablet PHA 12/19/24 In Process (Zestril Tablet) 07:30 Uric Acid LAB 12/19/24 Logged 07:19 Bipap/Cpap For Sleep RT 12/19/24 Logged Apnea 07:23 Maintain Fluid OSMIN 12/19/24 In Process Restrictions 09:20 BJ ALEXANDER Dec 19, 2024 10:01
--- NOTE | 2024-12-19 10:22 | ECG ---
[facility] Test Date: 2024-12-18 Test Time: 17:06:17 Pat Name: HUSEYIN ROMANO Department: ED Room: 0214T B Gender: M Cosmetic Manager: BLAINE : 1995 Requested By: LALA MONTENEGRO Order Number: [id number] Reading MD: Nate Chaidez Measurements Intervals [place] Rate: 94 P: 34 DC: 201 QRS: -34 QRSD: 87 T: 32 QT: 338 QTc: 423 Interpretive Statements Sinus rhythm Borderline prolonged DC interval Left axis deviation Low voltage, precordial leads Electronically Signed On 12-19-2024 22:20:03 PST by Nate Chaidez Please click the below link to view image of tracing.
[2024-12-19 10:54] LABS: Basophils # (auto) 0 10 ^3/uL (0-0.2); Eosinophils # (auto) 0.1 10 ^3/uL (0-0.8); Hemoglobin 14.5 g/dL (13.5-17.5); Nucleated Red Blood Cells % 0.1 %
[2024-12-19 11:03] LABS: Basophils % (auto) 0.6 % (0.0-2.0); Eosinophils % (auto) 1.7 % (0.0-7.0); Hematocrit 44.6 % (41.0-53.0); INR 1.04 (0.9-1.15); Lymphocytes # (auto) 1.6 10 ^3/uL (0.4-5.4); Lymphocytes % (auto) 18.5 % (10.0-50.0); Mean Corpuscular Hemoglobin 26.3 pg (28.0-32.0); Mean Corpuscular Hgb Conc. 32.6 g/dL (32.0-36.0); Mean Corpuscular Volume 80.6 fL (80.0-100.0); Monocytes % (auto) 11.9 % (0.0-12.0); Neutrophils # (auto) 5.7 10 ^3/uL (1.6-8.6); Neutrophils % (auto) 67.3 % (37.0-80.0); Partial Thromboplastin Time 30.8 SEC (24.5-34.5); Platelet Count (auto) 296 10^3/uL (140-450); Red Blood Cells 5.53 10^6/uL (4.5-5.90); Red Cell Distribution Width 16.2 % (11.8-14.3); White Blood Cell 8.5 10^3/uL (4.4-10.8)
[2024-12-19 11:14] LABS: Alanine Aminotransferase 19 U/L (7-40); Alkaline Phosphatase 74 U/L (46-116); Anion Gap 9 (5-15); BUN/Creatinine Ratio 17.4 (10.0-20.0); Blood Urea Nitrogen 12 mg/dL (9-23); Calcium 9.6 mg/dL (8.7-10.4); Carbon Dioxide 30 mmol/L (20-31); Chloride 101 mmol/L (98-107); Glucose 87 mg/dL (74-106); Sodium 140 mmol/L (136-145)
[2024-12-19 11:15] LABS: Albumin 4.5 g/dL (3.2-4.8); Aspartate Aminotransferase 14 U/L (13-40); Bilirubin, Total 0.5 mg/dL (0.2-1.0); Total Protein 8.2 g/dL (5.7-8.2)
[2024-12-19 11:16] LABS: Potassium 3.3 mmol/L (3.5-5.1)
[2024-12-19 11:33] LABS: Hepatitis B Surface Antibody Positive (Negative)
[2024-12-19 12:01] LABS: Hepatitis C Antibody Negative (Negative)
[2024-12-19] MEDS: ERGOCALCIFEROL 50,000 UNIT(1.25MG) CAP PO SCH (14:22)
[2024-12-19] MEDS: POTASSIUM EFFERVESENT TAB 25 MEQ PO ONE (14:22)
--- NOTE | 2024-12-19 15:08 | DVHSR ---
APPROVED REPORT EXAM: Two-dimensional and M-mode echocardiogram with Doppler and color Doppler. Blood Pressure: 169/109 mmHg INDICATION Heart Failure RISK FACTORS Obesity: Height: 5'10", Weight: 476 DIMENSIONS LVDd5.3 (3.8-5.7cm)LA (2D)4.3 (1.9-4.0cm)Aortic Root3.3 (2.0-3.7cm) LVDs3.4 (2.5-4.0cm)LA (MM) (1.9-4.0cm)Aortic Cusp Exc1.9 (1.5-2.0cm) EF (%) 65.0 (55-70%)Rt. Atrium (1.9-4.0cm)Asc. Aorta3.7 cm IVSd1.4 (0.7-1.1cm)RV (D) (1.8-2.4cm) PWd1.1 (0.7-1.1cm) Mitral Valve MitralMitral Stenosis E/A ratio0.02D MVAcm2 Aortic Valve Aortic ValveAortic Stenosis LVOT Diameter2.5 (1.8-2.4cm)Doppler AVAcm2 Pulmonic Valve V21.46m/s Other Information Quality : Technically LimitedRhythm : Technically limited study due to body habitus. Conclusion lvef 65% normal LV function normal RV function normal atria no severe valve abnormalities noted normal pericardium --?mild fat pad
[2024-12-19] MEDS: LABETALOL HCL 20 MG/4 ML VL IV ONE (17:15)
[2024-12-19] MEDS: CHLORTHALIDONE 25 MG TAB PO ONE (18:23)
--- NOTE | 2024-12-19 20:12 | DVH ---
INDICATION: Renovascular hypertension TECHNIQUE: Multiple real-time sonographic images of the kidneys and bladder were obtained. Duplex Doppler evaluation including color Doppler and spectral/pulsed waveform analysis of the bilate ral renal arteries was performed. COMPARISON: None FINDINGS: The right kidney measures 13.9 cm in length. The right renal echogenicity, contour and cortical thick ness are within normal limits. No hydronephrosis or large masses/calculi are seen. The left kidney measures 14.6 cm in length. The left renal echogenicity, contour, and cortical thickn ess are within normal limits. No hydronephrosis or large masses/calculi are seen. Aorta peak systolic velocity, 60 cm/s Right renal artery peak systolic velocity, nonvisualized cm/s (< 180 cm/s = normal). Left renal artery peak systolic velocity nonvisualized cm/s (< 180 cm/s = normal). IMPRESSION: Renal arteries are suboptimally visualized secondary to patient body habitus. *Felipe Morales Techniques in Noninvasive Vascular Diagnosis 2002
[2024-12-20] VITALS (9 sets, daily range): BP systolic 112–148; BP diastolic 58–85; PULSE 87–114; RESP 17–19; TEMP 97.3–98; O2SAT 91–100
[2024-12-20 02:43] LABS: Rapid Influenza A Negative (Negative); Rapid Influenza B Negative (Negative)
[2024-12-20 02:44] LABS: COVID19 ANTIGEN SOFIA FIA NEGATIVE (NEGATIVE)
[2024-12-20 07:20] LABS: Calcium 9.6 mg/dL (8.7-10.4); Chloride 102 mmol/L (98-107); Potassium 3.4 mmol/L (3.5-5.1); Sodium 141 mmol/L (136-145)
[2024-12-20 07:21] LABS: Anion Gap 10 (5-15); Carbon Dioxide 29 mmol/L (20-31)
[2024-12-20 07:26] LABS: BUN/Creatinine Ratio 16.7 (10.0-20.0); Blood Urea Nitrogen 11 mg/dL (9-23); Glucose 91 mg/dL (74-106)
[2024-12-20] MEDS: CHLORTHALIDONE 25 MG TAB PO SCH (08:20)
[2024-12-20] MEDS: POTASSIUM EFFERVESENT TAB 25 MEQ PO ONE ×2 (09:23→13:36)
[2024-12-20] MEDS: LISINOPRIL 20 MG TAB PO SCH (09:25)
[2024-12-20 16:46] LABS: Chloride 100 mmol/L (98-107); Potassium 3.7 mmol/L (3.5-5.1); Sodium 139 mmol/L (136-145)
[2024-12-20 16:47] LABS: Anion Gap 8 (5-15); Calcium 10.1 mg/dL (8.7-10.4); Carbon Dioxide 31 mmol/L (20-31)
[2024-12-20 16:52] LABS: BUN/Creatinine Ratio 16.7 (10.0-20.0); Blood Urea Nitrogen 10 mg/dL (9-23); Glucose 80 mg/dL (74-106)
--- NOTE | 2024-12-20 17:04 | DVHPNRES ---
Progress Note Date Seen: Dec 20, 2024 Resident Creating Document: BJ ALEXANDER RESIDENT Medical Necessity Reason Pt with a Central, PICC or Fol: No Subjective Review of Systems This 29-year-old morbidly obese male patient with PMH ex of congestive heart failure, hypertension who was sent to the ER by his PCP for uncontrolled blood pressure and lower extremity swelling/erythema. Patient reports being compliant 2 lisinopril 40 mg and amlodipine 5 mg, reports dyspnea on exertion, orthopnea, and PND for the past couple of weeks which is getting worsening. Does not use oxygen at home. Never had a sleep study done. Says that he is gaining weight in his lower extremities have been swollen and erythematous. His blood pressure was 220/120 at the clinic per patient. Reports morning headaches but denies nausea or vomiting. Also reports urinary incontinence and palpitations. Denies fevers/chills/chest pain. PMH: See above PSH: Unremarkable Social history: Lives with mother, does not work, smoked marijuana in the past, denies alcohol or other drug use Home medication: Lisinopril 40 mg daily, amlodipine 5 mg daily 12/19 - Patient seen and examined at the bedside. Has bilateral 3+ pitting edema and erythema of the tibia bilaterally. 12/20 - Patient seen and examined at the bedside. Resolving bilateral pitting edema. Patient is noncompliant, refused CPAP at night. Objective vital signs Vital Sign Date Time Temp Pulse Resp B/P (MAP) Pulse Ox O2 Delivery O2 Flow Rate FiO2 12/20/24 13:00 98.0 94 18 121/75 (90) 92 98.0 12/20/24 08:30 Room Air* 0 21 Total Intake and Output 12/19/24 12/19/24 12/20/24 15:00 23:00 07:00 Intake Total 563 ml 233 ml 250 ml Output Total 1200 ml Balance 563 ml -967 ml 250 ml medications Current Medications Medications Dose Ordered Sig/Capri Route Start Time Stop Time Status Last Admin Dose Admin Sodium Chloride 10 ml Q8HR IV 12/18/24 22:00 12/20/24 13:36 10 ML Ondansetron HCl 4 mg Q4HP PRN IV 12/18/24 21:15 Docusate Sodium 100 mg BIDPRN PRN PO 12/18/24 21:15 Enoxaparin Sodium 40 mg DAILY SC 12/19/24 10:00 12/20/24 09:24 40 MG Acetaminophen 650 mg Q6HP PRN PO 12/18/24 21:15 Morphine Sulfate 2 mg Q4HPRN PRN IV 12/18/24 21:15 Nitroglycerin 0.4 mg Q5MINP PRN SL 12/18/24 21:15 Morphine Sulfate 2 mg Q30M PRN IV 12/18/24 21:15 Furosemide 40 mg BIDD IV 12/19/24 08:00 12/19/24 18:26 40 MG Lisinopril 40 mg DAILY PO 12/20/24 10:00 12/20/24 09:25 40 MG Ergocalciferol 50,000 unit Q7D PO 12/19/24 12:15 12/19/24 14:22 50,000 UNIT Chlorthalidone 12.5 mg DAILY@BREAKFAST PO 12/20/24 08:00 12/20/24 08:20 12.5 MG Examination Patient lying in bed, in no acute distress, saturating 95 on room air. Limited physical exam given the body habitus General: Morbidly obese, afebrile, palor, mucosae are moist Cardiovascular: Regular S1 and S2. No murmurs, gallops or rubs. No JVD elevation. 3+ bilateral pitting edema Respiratory: Normal B/L air entry on room air. Decreased bilateral lung sounds on auscultation Abdomen: Soft, nontender, nondistended, normoactive bowel sounds, no rebound tenderness, no organomegaly, no masses Genitourinary: Deferred MSK/skin: Mobilizes 4 limbs. Skin is dry and warm. Bilateral garcia are erythematous and swollen. Neurological: No motor, no sensitive deficits, normal speech. Pupils are isocoric and reactive. Psych/Mental Status: A/Ox3 laboratory and microbiology Laboratory Tests 12/20/24 16:10 12/19/24 06:45 Test 12/20/24 16:10 Range/Units Serum Glucose 80 74-106 mg/dL Labs and/or images reviewed: Labs reviewed by me, Image(s) reviewed by me Problem List/Assessment/Plan Problem List/Assessment/Plan Sirs secondary to end-organ damage with pulmonary edema secondary to Hypertensive emergency Pulmonary edema Acute on chronic diastolic Congestive heart failure exacerbation- NYHA class 3 ? LUCIAN Medication noncompliance Resistance To medication Patient received clonidine and hydralazine 1 dose by the admitting physician Lasix IV 40 mg b.i.d. Enalapril p.r.n. Started home medication Lisinopril 40 mg daily, started chlorthalidone 12.5 mg daily DC medication amlodipine 5 mg daily given lower extremity swelling EKG completed, shows sinus rhythm Telemetry reviewed, shows PVCs but otherwise sinus rhythm and intermittent sinus tachycardia Patient needs outpatient sleep study CPAP at nighttime, patient refused Renal ultrasound could not be completed given the body habitus A.m. cortisol WNL TSH within normal limits Echocardiogram lvef 65%, normal LV function, normal RV function, normal atria, no severe valve abnormalities noted On fluid restrictions and strict I&Os Intermittent urinary incontinence Outpatient workup advised Morbid obesity Counseled regarding lifestyle and dietary modifications Vitamin-D deficiency Supplemented Diet: Cardiac diet DVT prophylaxis: Lovenox 60 mg q.12 given BMI more than 50 Goals of care discussed with the patient for more than 27 minute, full code status Plan discussed with patient in which all questions have been answered Case discussed with Dr. Castro Plan discussed with: Patient My Orders My Orders Orders - BJ ALEXANDER Procedure Category Date Status Time Chlorthalidone PHA 12/20/24 In Process (Chlorthalidone) 08:00 Communication Order ORDERS 12/20/24 Transmitted 08:22 Oob To Chair OSMIN 12/20/24 In Process 11:20 OOB ORDERS 12/20/24 Transmitted 11:20 BIPAP RT 12/20/24 Logged 15:00 BJ ALEXANDER Dec 20, 2024 17:04
[2024-12-20] MEDS: ENOXAPARIN SOD 60 MG/0.6 ML SYRINGE SC SCH (21:13)
[2024-12-21] VITALS (12 sets, daily range): BP systolic 113–143; BP diastolic 55–93; PULSE 84–107; RESP 16–19; TEMP 97.7–98.3; O2SAT 89–98
[2024-12-21 06:47] LABS: Anion Gap 9 (5-15); Calcium 9.9 mg/dL (8.7-10.4); Chloride 99 mmol/L (98-107); Sodium 140 mmol/L (136-145)
[2024-12-21 06:52] LABS: Carbon Dioxide 32 mmol/L (20-31); Potassium 3.4 mmol/L (3.5-5.1)
[2024-12-21 06:53] LABS: BUN/Creatinine Ratio 16.2 (10.0-20.0); Blood Urea Nitrogen 11 mg/dL (9-23); Glucose 90 mg/dL (74-106)
[2024-12-21] MEDS: POTASSIUM EFFERVESENT TAB 25 MEQ PO ONE (09:24)
--- NOTE | 2024-12-21 11:16 | DVHPNRES ---
Progress Note Date Seen: Dec 21, 2024 Resident Creating Document: BJ ALEXANDER RESIDENT Medical Necessity Reason Pt with a Central, PICC or Fol: No Subjective Review of Systems This 29-year-old morbidly obese male patient with PMH ex of congestive heart failure, hypertension who was sent to the ER by his PCP for uncontrolled blood pressure and lower extremity swelling/erythema. Patient reports being compliant 2 lisinopril 40 mg and amlodipine 5 mg, reports dyspnea on exertion, orthopnea, and PND for the past couple of weeks which is getting worsening. Does not use oxygen at home. Never had a sleep study done. Says that he is gaining weight in his lower extremities have been swollen and erythematous. His blood pressure was 220/120 at the clinic per patient. Reports morning headaches but denies nausea or vomiting. Also reports urinary incontinence and palpitations. Denies fevers/chills/chest pain. PMH: See above PSH: Unremarkable Social history: Lives with mother, does not work, smoked marijuana in the past, denies alcohol or other drug use Home medication: Lisinopril 40 mg daily, amlodipine 5 mg daily 12/19 - Patient seen and examined at the bedside. Has bilateral 3+ pitting edema and erythema of the tibia bilaterally. 12/20 - Patient seen and examined at the bedside. Resolving bilateral pitting edema. Patient is noncompliant, refused CPAP at night. 12/21 - patient seen and examined at bedside. He is sitting comfortably in the chair. On room air. He still has more than 3+ pitting edema bilaterally. Lasix increased to TID Objective vital signs Vital Sign Date Time Temp Pulse Resp B/P (MAP) Pulse Ox O2 Delivery O2 Flow Rate FiO2 12/21/24 09:05 95 Room Air 0.0 12/21/24 09:05 21 12/21/24 09:04 133/72 12/21/24 08:30 98.3 98 16 98.3 Total Intake and Output 12/20/24 12/20/24 12/21/24 15:00 23:00 07:00 Intake Total 510 ml 510 ml 300 ml Output Total 600 ml 350 ml Balance 510 ml -90 ml -50 ml medications Current Medications Medications Dose Ordered Sig/Capri Route Start Time Stop Time Status Last Admin Dose Admin Sodium Chloride 10 ml Q8HR IV 12/18/24 22:00 12/21/24 05:06 10 ML Ondansetron HCl 4 mg Q4HP PRN IV 12/18/24 21:15 Docusate Sodium 100 mg BIDPRN PRN PO 12/18/24 21:15 Acetaminophen 650 mg Q6HP PRN PO 12/18/24 21:15 Morphine Sulfate 2 mg Q4HPRN PRN IV 12/18/24 21:15 Nitroglycerin 0.4 mg Q5MINP PRN SL 12/18/24 21:15 Morphine Sulfate 2 mg Q30M PRN IV 12/18/24 21:15 Furosemide 40 mg BIDD IV 12/19/24 08:00 12/21/24 05:06 40 MG Lisinopril 40 mg DAILY PO 12/20/24 10:00 12/21/24 09:04 40 MG Ergocalciferol 50,000 unit Q7D PO 12/19/24 12:15 12/19/24 14:22 50,000 UNIT Chlorthalidone 12.5 mg DAILY@BREAKFAST PO 12/20/24 08:00 12/21/24 09:03 12.5 MG Enoxaparin Sodium 60 mg BID SC 12/20/24 22:00 12/21/24 09:04 60 MG Examination Patient lying in bed, in no acute distress, saturating 95 on room air. Limited physical exam given the body habitus General: Morbidly obese, afebrile, palor, mucosae are moist Cardiovascular: Regular S1 and S2. No murmurs, gallops or rubs. No JVD elevation. 3+ bilateral pitting edema Respiratory: Normal B/L air entry on room air. Decreased bilateral lung sounds on auscultation Abdomen: Soft, nontender, nondistended, normoactive bowel sounds, no rebound tenderness, no organomegaly, no masses Genitourinary: Deferred MSK/skin: Mobilizes 4 limbs. Skin is dry and warm. Bilateral garcia are erythematous and swollen. Neurological: No motor, no sensitive deficits, normal speech. Pupils are isocoric and reactive. Psych/Mental Status: A/Ox3 laboratory and microbiology Laboratory Tests 12/21/24 05:22 12/19/24 06:45 Test 12/21/24 05:22 Range/Units Serum Glucose 90 74-106 mg/dL Labs and/or images reviewed: Labs reviewed by me, Image(s) reviewed by me Problem List/Assessment/Plan Problem List/Assessment/Plan Sirs secondary to end-organ damage with pulmonary edema secondary to Hypertensive emergency Pulmonary edema Acute on chronic diastolic Congestive heart failure exacerbation- NYHA class 3 ? LUCIAN Medication noncompliance Resistance To medication Patient received clonidine and hydralazine 1 dose by the admitting physician Lasix IV 40 mg b.i.d. increased to TID 12/21 Enalapril p.r.n. Started home medication Lisinopril 40 mg daily, started chlorthalidone 12.5 mg daily DC medication amlodipine 5 mg daily given lower extremity swelling EKG completed, shows sinus rhythm Telemetry reviewed, shows PVCs but otherwise sinus rhythm and intermittent sinus tachycardia Patient needs outpatient sleep study CPAP at nighttime, patient refused Renal ultrasound could not be completed given the body habitus A.m. cortisol WNL TSH within normal limits Echocardiogram lvef 65%, normal LV function, normal RV function, normal atria, no severe valve abnormalities noted On fluid restrictions and strict I&Os BMP q.12 hr Intermittent urinary incontinence Outpatient workup advised Morbid obesity Counseled regarding lifestyle and dietary modifications Vitamin-D deficiency Supplemented Diet: Cardiac diet DVT prophylaxis: Lovenox 60 mg q.12 given BMI more than 50 Goals of care discussed with the patient for more than 27 minute, full code status Plan discussed with patient in which all questions have been answered Case discussed with Dr. Arriaza Plan discussed with: Patient My Orders My Orders Orders - BJ ALEXANDER Procedure Category Date Status Time Oob To Chair OSMIN 12/20/24 In Process 11:20 OOB ORDERS 12/20/24 Transmitted 11:20 BIPAP RT 12/20/24 Logged 15:00 Enoxaparin Sodium PHA 12/20/24 In Process (Lovenox) 22:00 Discontinue Tele OSMIN 12/21/24 In Process 08:16 Transfer Orders XFER 12/21/24 Transmitted 08:16 Furosemide Injection PHA 12/21/24 Verified (Lasix Injection) 14:00 Basic Metabolic Panel LAB 12/21/24 Verified 14:00 Date of Service: Dec 21, 2024 Billing Provider: ANTHONY ARRIAZA MD Common Visit Codes: [id number] INP/OBS CARE(HIGH) BJ ALEXANDER Dec 21, 2024 11:16 ANTHONY ARRIAZA MD Dec 22, 2024 19:22
[2024-12-21] MEDS: FUROSEMIDE 40 MG/4 ML VIAL IV SCH (15:06)
[2024-12-21 15:24] LABS: Potassium 4.3 mmol/L (3.5-5.1); Sodium 137 mmol/L (136-145)
[2024-12-21 15:25] LABS: Anion Gap 7 (5-15)
[2024-12-21 15:30] LABS: Glucose 103 mg/dL (74-106)
[2024-12-21 15:31] LABS: BUN/Creatinine Ratio 17.1 (10.0-20.0); Blood Urea Nitrogen 14 mg/dL (9-23)
[2024-12-21 15:33] LABS: Calcium 10.5 mg/dL (8.7-10.4); Carbon Dioxide 35 mmol/L (20-31); Chloride 95 mmol/L (98-107)
[2024-12-22] VITALS (8 sets, daily range): BP systolic 111–126; BP diastolic 67–83; PULSE 77–116; RESP 14–19; TEMP 36.6; O2SAT 93–97
[2024-12-22 07:16] LABS: Sodium 139 mmol/L (136-145)
[2024-12-22 07:17] LABS: Anion Gap 8 (5-15)
[2024-12-22 07:22] LABS: Glucose 85 mg/dL (74-106)
[2024-12-22 07:29] LABS: BUN/Creatinine Ratio 19.7 (10.0-20.0); Blood Urea Nitrogen 15 mg/dL (9-23)
[2024-12-22 07:54] LABS: Carbon Dioxide 33 mmol/L (20-31); Chloride 98 mmol/L (98-107); Potassium 3.4 mmol/L (3.5-5.1)
[2024-12-22] MEDS: POTASSIUM CHL 20 Meq TABLET PO ONE (08:57)
--- NOTE | 2024-12-22 11:37 | DVHDSRES ---
Discharge Summary Date of Admission Resident Creating Document: BJ ALEXANDER RESIDENT Dec 18, 2024 at 21:15 Date of Discharge: Dec 22, 2024 Admitting Diagnosis Hypertensive emergency with end-organ damage Labs/Diagnostic Data: Laboratory Results Test 12/22/24 05:21 12/20/24 01:50 12/19/24 07:19 12/19/24 06:45 Sodium Level 139 mmol/L (136-145) Potassium Level 3.4 mmol/L (3.5-5.1) Chloride Level 98 mmol/L (98-107) Carbon Dioxide Level 33 mmol/L (20-31) Anion Gap 8 (5-15) Blood Urea Nitrogen 15 mg/dL (9-23) Creatinine 0.76 mg/dL (0.700-1.30) Glomerular Filtration Rate Calc 123 mL/min (>90) BUN/Creatinine Ratio 19.7 (10.0-20.0) Serum Glucose 85 mg/dL (74-106) Calcium Level 10.0 mg/dL (8.7-10.4) Influenza Type A Antigen Negative (Negative) Influenza Type B Antigen Negative (Negative) SARS-CoV-2 Antigen (Rapid) Negative (NEGATIVE) Uric Acid 7.9 mg/dL (3.7-9.2) White Blood Count 8.5 10^3/uL (4.4-10.8) Red Blood Count 5.53 10^6/uL (4.5-5.90) Hemoglobin 14.5 g/dL (13.5-17.5) Hematocrit 44.6 % (41.0-53.0) Mean Corpuscular Volume 80.6 fL (80.0-100.0) Mean Corpuscular Hemoglobin 26.3 pg (28.0-32.0) Mean Corpuscular Hemoglobin Concent 32.6 g/dL (32.0-36.0) Red Cell Distribution Width 16.2 % (11.8-14.3) Platelet Count 296 10^3/uL (140-450) Mean Platelet Volume 8.3 fL (6.9-10.8) Neutrophils (%) (Auto) 67.3 % (37.0-80.0) Lymphocytes (%) (Auto) 18.5 % (10.0-50.0) Monocytes (%) (Auto) 11.9 % (0.0-12.0) Eosinophils (%) (Auto) 1.7 % (0.0-7.0) Basophils (%) (Auto) 0.6 % (0.0-2.0) Neutrophils # (Auto) 5.7 10 ^3/uL (1.6-8.6) Lymphocytes # (Auto) 1.6 10 ^3/uL (0.4-5.4) Monocytes # (Auto) 1.0 10 ^3/uL (0-1.3) Eosinophils # (Auto) 0.1 10 ^3/uL (0-0.8) Basophils # (Auto) 0 10 ^3/uL (0-0.2) Nucleated Red Blood Cells 0.1 % Prothrombin Time 11.0 sec (9.3-11.8) Prothrombin Time INR 1.04 (0.9-1.15) Activated Partial Thromboplast Time 30.8 SEC (24.5-34.5) Total Bilirubin 0.5 mg/dL (0.2-1.0) Aspartate Amino Transferase (AST) 14 U/L (13-40) Alanine Aminotransferase (ALT) 19 U/L (7-40) Alkaline Phosphatase 74 U/L (46-116) Troponin I High Sensitivity < 3 ng/L (</=54) Total Protein 8.2 g/dL (5.7-8.2) Albumin 4.5 g/dL (3.2-4.8) Vitamin B12 Level 442 pg/mL (211-911) Vitamin D 25-Hydroxy 8.8 ng/mL (30.0-100) Cortisol AM Sample 14.77 ug/dL (5.27-22.45) Hepatitis B Surface Antibody Positive (Negative) Hepatitis C Antibody Negative (Negative) Test 12/19/24 06:00 12/18/24 17:23 12/18/24 15:57 Urine Color Yellow (Yellow) Urine Clarity Clear (Clear) Urine pH 5.5 (5.0-9.0) Urine Specific [place] 1.018 (1.001-1.035) Urine Protein Negative (Negative) Urine Ketones Negative (Negative) Urine Blood Negative /uL (Negative) Urine Nitrite Negative (Negative) Urine Bilirubin Negative (Negative) Urine Urobilinogen Normal mg/dL (Negative) Urine Leukocyte Esterase Negative /uL (Negative) Urine RBC None seen /hpf (0 - 3) Urine Microscopic WBC 2 /HPF (0-3) Urine Squamous Epithelial Cells Few /hpf (<5) Urine Bacteria Few /hpf (None Seen) Urine Mucus Few (None Seen) Urine Glucose Normal mg/dL (Normal) Urine Opiates Screen Neg (NEGATIVE) Urine Fentanyl Screen Neg (NEGATIVE) Urine Barbiturates Screen Neg (NEGATIVE) Urine Phencyclidine Screen Neg (NEGATIVE) Urine Amphetamines Screen Neg (NEGATIVE) Urine Benzodiazepines Screen Neg (NEGATIVE) Urine Cocaine Screen Neg (NEGATIVE) Urine Cannabinoids Screen Neg (NEGATIVE) Hemoglobin A1c 5.6 % A1C (<5.7) Magnesium Level 2.2 mg/dL (1.6-2.6) B-Type Natriuretic Peptide 7.37 pg/mL (0-100) Triglycerides Level 63 mg/dL (< 150) Cholesterol Level 148 mg/dL (< 200) LDL Cholesterol 101 mg/dL (< 100) HDL Cholesterol 44 mg/dL (40-59) Thyroid Stimulating Hormone (TSH) 3.25 uIU/mL (0.55-4.78) Plasma/Serum Blood Alcohol 5.3 mg/dL (<10) Other Laboratory Tests 12/22/24 05:21 12/19/24 06:45 Brief Hx & Hospital Course: HPI-This 29-year-old morbidly obese male patient with PMH ex of congestive heart failure, hypertension who was sent to the ER by his PCP for uncontrolled blood pressure and lower extremity swelling/erythema. Patient reports being compliant 2 lisinopril 40 mg and amlodipine 5 mg, reports dyspnea on exertion, orthopnea, and PND for the past couple of weeks which is getting worsening. Does not use oxygen at home. Never had a sleep study done. Says that he is gaining weight in his lower extremities have been swollen and erythematous. His blood pressure was 220/120 at the clinic per patient. Reports morning headaches but denies nausea or vomiting. Also reports urinary incontinence and palpitations. Denies fevers/chills/chest pain. Hospital course--patient came to the hospital with a complaint of uncontrolled blood pressure with dyspnea, on exertion, orthopnea, PND. Patient was admitted to the hospital due to the hospital due to hypertensive emergency. CXR revealed-Pulmonary vascular congestion . Doppler study very limited study, negative for DVT. Doppler of the-renal artery revealed-Renal arteries are suboptimally visualized secondary to patient body habitus. Echo 2D revealed LVEF 65%. Normal LV and RV function. Normal atria. Patient was treated conservatively and symptoms improved. Patient is adamant about going home today. Patient was advised to follow up with the primary care physician 1 week and resume home medications. Patient was hemodynamically stable on discharge. Diagnosis- SIRS secondary to end-organ damage with pulmonary edema secondary to Hypertensive emergency Pulmonary edema Acute on chronic diastolic Congestive heart failure exacerbation- NYHA class 3 ? LUCIAN Medication noncompliance Resistance To medication Intermittent urinary incontinence Morbid obesity Vitamin-D deficiency Discharge plan Please resume home medications Please follow up with the primary care physician in 1 week Patient was counseled about the importance of weight reduction, healthy diet, physical activity, low-fat diet Please consult with a sleep medicine for further evaluation and care of suspected obstructive sleep apnea or obesity hypoventilation syndrome Also follow up with the primary care physician for intermittent urinary incontinence Operations or Procedures [place] [id number] Ph: [phone] DIAGNOSTIC IMAGING Diagnostic Imaging Report : [id number] Signed PATIENT: HUSEYIN ROMANO ACCT: [id number] UNIT: [id number] : 1995 LOC: TELE-CENTR ROOM / BED: [address] [place] [address] AGE / SEX: 29 / M ADM STATUS: ADM IN SERVICE 0800 ORDERING PHYSICIAN: ADRIANA BENJAMIN RESIDENT PROCEDURE(s): RAC - RENAL ARTERY COMP REASON: Renovascular hypertension ORDER NUMBER(s): [id number], ACCESSION NUMBER(s): [id number] INDICATION: Renovascular hypertension TECHNIQUE: Multiple real-time sonographic images of the kidneys and bladder were obtained. Duplex Doppler evaluation including color Doppler and spectral/pulsed waveform analysis of the bilateral renal arteries was performed. COMPARISON: None FINDINGS: The right kidney measures 13.9 cm in length. The right renal echogenicity, contour and cortical thickness are within normal limits. No hydronephrosis or large masses/calculi are seen. The left kidney measures 14.6 cm in length. The left renal echogenicity, contour, and cortical thickness are within normal limits. No hydronephrosis or large masses/calculi are seen. Aorta peak systolic velocity, 60 cm/s Right renal artery peak systolic velocity, nonvisualized cm/s (< 180 cm/s = normal). Left renal artery peak systolic velocity nonvisualized cm/s (< 180 cm/s = normal). IMPRESSION: Renal arteries are suboptimally visualized secondary to patient body habitus. *Fel[facility] Morales in Noninvasive Vascular Diagnosis 2001 ATED BY: JULIO C CHAVEZ MD DICTATED DATE/TIME: 12/19/242007 SIGNED BY: JULIO C CHAVEZ MD SIGNED DATE/TIME: 12/19/242007 CC: [place] [id number] Ph: [phone] DIAGNOSTIC IMAGING Diagnostic Imaging Report : [id number] Signed PATIENT: HUSEYIN ROMANO ACCT: [id number] UNIT: [id number] : 1995 LOC: OVERFLOW ROOM / BED: [address] [place] [address] / AGE / SEX: 29 / M ADM STATUS: ADM IN SERVICE 12 ORDERING PHYSICIAN: ADRIANA BENJAMIN RESIDENT PROCEDURE(s): BLDVT - BiLat Lower DVT REASON: DVT ORDER NUMBER(s): [id number], ACCESSION NUMBER(s): [id number] Bilateral lower extremity venous duplex Clinical History: DVT Comparison: US LT LOWER DVT on DOS: 05/17/24 Technique: Duplex Doppler evaluation of the deep venous systems of both lower extremities from the common femoral veins to the popliteal veins including color Doppler and spectral/pulsed waveform analysis was performed. Findings: Impression: Very limited study. Only bilateral popiteal veins are adequately visualized and demonstrate no evidence of thrombus. ATED BY: MILTON CEDENO MD DICTATED DATE/TIME: 12/19/242 SIGNED BY: MILTON CEDENO MD SIGNED DATE/TIME: 12/19/242 CC: [place] [id number] Ph: [phone] DIAGNOSTIC IMAGING Diagnostic Imaging Report : [id number] Signed PATIENT: HUSEYIN ROMANO ACCT: [id number] UNIT: [id number] : 1995 LOC: ER ROOM / BED: / AGE / SEX: 29 / M ADM STATUS: REG ER SERVICE 152 ORDERING PHYSICIAN: LALA MONTENEGRO MD PROCEDURE(s): CXRP - CHEST PORTABLE REASON: sob ORDER NUMBER(s): [id number], ACCESSION NUMBER(s): [id number] CHEST RADIOGRAPH Indication: sob Technique: Single frontal view of the chest was obtained COMPARISON: CHEST PORTABLE on DOS: 01/12/22 FINDINGS: Lines and Tubes: None Lungs: Congestion Pleura: No effusion. No pneumothorax. Cardiomediastinal contours: Cardiomegaly Bones: Unremarkable IMPRESSION: Pulmonary vascular congestion ATED BY: JULIO C CHAVEZ MD DICTATED DATE/TIME: 12/18/24 153 SIGNED BY: JULIO C CHAVEZ MD SIGNED DATE/TIME: 12/18/24 153 CC: [place] [id number] Ph: [phone] DIAGNOSTIC IMAGING Diagnostic Imaging Report : [id number] Signed PATIENT: HUSEYIN ROMANO ACCT: [id number] UNIT: [id number] : 1995 LOC: TELE-CENTR [facility] AGE / SEX: 29 / M ADM STATUS: ADM IN SERVICE 14 ORDERING PHYSICIAN: ADRIANA BENJAMIN PROCEDURE(s): ECIDC - ECHO 2D MODE CARDIAC DOP REASON: CHF ORDER NUMBER(s): [id number], ACCESSION NUMBER(s): [id number] APPROVED REPORT EXAM: Two-dimensional and M-mode echocardiogram with Doppler and color Doppler. Blood Pressure: 169/109 mmHg INDICATION Heart Failure RISK FACTORS Obesity: Height: 5'10", Weight: 476 DIMENSIONS LVDd 5.3 (3.8-5.7cm) LA (2D) 4.3 (1.9-4.0cm) Aortic Root 3.3 (2.0- 3.7cm) LVDs 3.4 (2.5-4.0cm) LA (MM) (1.9-4.0cm) Aortic Cusp Exc 1.9 (1.5- 2.0cm) EF (%) 65.0 (55-70%) Rt. Atrium (1.9-4.0cm) Asc. Aorta 3.7 cm IVSd 1.4 (0.7-1.1cm) RV (D) (1.8-2.4cm) PWd 1.1 (0.7-1.1cm) Mitral Valve Mitral Mitral Stenosis E/A ratio 0.0 2D MVA cm2 Aortic Valve Aortic Valve Aortic Stenosis LVOT Diameter 2.5 (1.8-2.4cm) Doppler NATANAEL cm2 Pulmonic Valve V2 1.46m/s Other Information Quality : Technically Limited Rhythm : Technically limited study due to body habitus. Conclusion lvef 65% normal LV function normal RV function normal atria no severe valve abnormalities noted normal pericardium --?mild fat pad SIGNED BY: JASON RENDON MD SIGNED DATE/TIME: 12/19/24 1587 CC: Condition at Discharge: Stable Final Diagnosis/Problems List SIRS secondary to end-organ damage with pulmonary edema secondary to Hypertensive emergency Pulmonary edema Acute on chronic diastolic Congestive heart failure exacerbation- NYHA class 3 ? LUCIAN Medication noncompliance Resistance To medication Intermittent urinary incontinence Morbid obesity Vitamin-D deficiency Discharge Disposition: Home Discharge Instruct/Medications Diet: Cardiac 2g Na,low cholest Activity: Light activity Activity comment: Please follow up with the primary care physician regarding your activity further Follow Up/Referral: Please follow up with your primary care physician in 1 week Please follow up with the your pocket secretary assembler in 2-3 weeks Please follow up with the urologist for intermittent urinary incontinence with a reference from your primary care physician Medications: Lasix 20 mg by mouth daily once Lisinopril 20 mg by mouth once daily Lopressor 12.5 mg by mouth daily 2 times a day Please resume home medications Please follow up with the primary care physician in 1 week Please keep a record of your blood pressure at home and bring to primary care physician's office to review Patient was counseled about the importance of weight reduction, healthy diet, physical activity, low-fat diet Please consult with a sleep medicine for further evaluation and care of suspected obstructive sleep apnea or obesity hypoventilation syndrome Also follow up with the primary care physician for intermittent urinary incontinence Discharge Statement: "Patient was advised to return to the ER or call 911 if any headaches, dizziness, shortness of breath, chest pain, abdominal pain, bleeding, fevers, or worsening of medical condition. Patient was counseled about treatment plan, medications, possible side effects, patientverbalized understanding. All questions were answered to the best of my ability. This discharge took greater then 30 minutes in planning, reviewing documentation, counseling the patient, and discussing with other team members." ASSESSMENT ASSESSMENT Assessment Sirs secondary to end-organ damage with pulmonary edema secondary to Hypertensive emergency Pulmonary edema Acute on chronic diastolic Congestive heart failure exacerbation- NYHA class 3 ? LUCIAN Medication noncompliance Resistance To medication Intermittent urinary incontinence Date of Service: Dec 22, 2024 Billing Provider: ANTHONY ARRIAZA MD Common Visit Codes: 11465-IVZ/OBS DISCH DAY >30min DENG CHAVEZ RESIDENT Dec 22, 2024 11:37 ANTHONY ARRIAZA MD Dec 22, 2024 19:23
[2024-12-22] MEDS ORDERED: FURO1TAB33 PO (13:27)
[2024-12-22] MEDS ORDERED: LISI20TA56 PO (13:27)
[2024-12-22] MEDS ORDERED: MET25T PO (13:27)
== END 2024-12-22 17:32 | disposition home or self-care (01) | DRG 194 ==
LOC: ER 15:02 → OVERFLOW 21:15 → TELE-CENTR 12-19 04:10 → CENTRAL 12-22 08:11
PROVIDERS: ADMIT Student in an Organized Health Care Education/Training Program; ATTEND Student in an Organized Health Care Education/Training Program
PROC: 5A09357 Assistance with Respiratory Ventilation, Less than 24 Consecutive Hours, Continuous Positive Airway Pressure (ICD-10-PCS; principal; 2024-12-21)
DX: I11.0 Hypertensive heart disease with heart failure (principal); R65.11 Systemic inflammatory response syndrome (SIRS) of non-infectious origin with acute organ dysfunction; I16.1 Hypertensive emergency; I50.33 Acute on chronic diastolic (congestive) heart failure; Z20.822 Contact with and (suspected) exposure to COVID-19; E66.01 Morbid (severe) obesity due to excess calories; E55.9 Vitamin D deficiency, unspecified; R32 Unspecified urinary incontinence; G47.33 Obstructive sleep apnea (adult) (pediatric); Z79.899 Other long term (current) drug therapy; Z68.44 Body mass index [BMI] 60.0-69.9, adult; Z91.148 Patient's other noncompliance with medication regimen for other reason
CPT/HCPCS: 36415; 71045; 80048; 80053; 80061; 80307; 80320; 81001; 82306; 82533; 82570; 82607; 83036; 83735; 83880; 84443; 84484; 84550; 84585; 85025; 85610; 85730; 86706; 86803; 87426; 87804; 93005; 93306; 93970; 93975; 94660; 96374; 97110; 97116; 97163; 97530; 99291; G0378

== ENCOUNTER → 2025-01-22 | Outpatient (CLI) | payer MEDICAID ==
[~2025-01-22] MED LIST changes: +FURO1TAB33 PO
[2025-01-22 10:53] LABS: Urine Bacteria None Seen /hpf (None Seen)
[2025-01-22 11:11] LABS: Urine Blood Negative /uL (Negative); Urine Clarity Clear (Clear); Urine Color Yellow (Yellow); Urine Hyaline Cast FEW /lpf (0 - 2); Urine Mucus FEW (None Seen); Urine Protein, UAD Negative (Negative); Urine Squamous Epithelial Cell FEW /hpf (<5); Urine Urobilinogen Normal (Negative); Urine WBC 2 /HPF (0-3); Urine pH 6.5 (5.0-9.0)
[2025-01-22 11:34] LABS: Chloride 103 mmol/L (98-107); Sodium 141 mmol/L (136-145)
[2025-01-22 11:35] LABS: Anion Gap 7 (5-15); Carbon Dioxide 31 mmol/L (20-31)
[2025-01-22 11:36] LABS: Calcium 9.4 mg/dL (8.7-10.4)
[2025-01-22 11:41] LABS: BUN/Creatinine Ratio 8.8 (10.0-20.0); Blood Urea Nitrogen 6 mg/dL (9-23); Glucose 91 mg/dL (74-106)
== END | disposition home or self-care (01) ==
LOC: LAB 10:41
PROVIDERS: ATTEND Internal Medicine Cardiovascular Disease
DX: M79.89 Other specified soft tissue disorders (principal); Z00.00 Encounter for general adult medical examination without abnormal findings
CPT/HCPCS: 36415; 80048; 81001

== ENCOUNTER 2025-05-26 23:39 | Emergency (ER) | payer MEDICAID ==
[~2025-05-26] VITALS: Ht 177.8 cm; Wt 227.3 kg
[2025-05-26 23:40] VITALS: TEMP 98.2
--- NOTE | 2025-05-27 00:05 | ED.PDOC ---
History of Present Illness HPI Comments 30 y/o morbidly obese M is BIBA for c/c chest pain, shortness of breath, bilateral leg swelling, and headache. Per EMS report, patient endorses on onset of symptoms, today, after running out of his medications 3x days ago. Significant history of CHF - NYHA class 3, on Lasix, HTN, SIRS, pulmonary edema, and medication noncompliance. No other associated symptoms, modifiers, recent injuries or sick contacts present at this time. Patient was noted to have been found hypertensive and tachycardic on scene and en route, with an initial SpO2 of 85%RA. Chief Complaint: High Blood Pressure Time Seen by MD: 23:50 Reviewed Notes: Nurses Notes, Field Crop Farming Supervisor Notes, Medications, Allergies Allergies: Coded Allergies: NO KNOWN ALLERGIES (Unverified , 09/08/21) Home Meds Active Scripts Metoprolol Tartrate (Lopressor) 25 Mg Tb, 12.5 MG PO Q12HR for 30 Days, #30 TAB 0 Refills Prov:DENG CHAVEZ RESIDENT 12/22/24 Lisinopril (Lisinopril) 20 Mg Tab, 1 TAB PO DAILY for 30 Days, #30 TAB 5 Refills Prov:DENG CHAVEZ RESIDENT 12/22/24 Furosemide (Lasix) 20 Mg Tb, 1 TAB PO DAILY for 30 Days, #30 TAB 1 Refill Prov:DENG CHAVEZ RESIDENT 12/22/24 Lisinopril (Lisinopril) 20 Mg Tab, 1 TAB PO DAILY, #30 TAB Prov:CONNOR MASSEY 05/17/24 Furosemide (Lasix) 40 Mg Tab, 40 MG PO DAILY, #30 TAB Prov:RITCHIE GRIDER MD 01/16/22 Metoprolol Tartrate (Lopressor) 25 Mg Tb, 12.5 MG PO BID, #15 TAB Prov:RITCHIE GRIDER MD 01/16/22 Levofloxacin (Levaquin) 500 Mg Tab, 500 MG PO DAILY, #10 TAB Prov:RITCHIE GRIDER MD 01/16/22 Information Source: Patient, Emergency Med Personnel Mode of Arrival: EMS Severity: Moderate Timing: Hours Duration: Since onset Prehospital treatment: 12 Lead EKG, Accucheck, Night Warehouse Manager Past Medical History PAST MEDICAL HISTORY: CHF (NYHA class 3), HTN Past Medical History (Other): SIRS Pulmonary edema Medication noncompliance Vitamin-D deficiency Morbid obesity Surgical History: Denies all surgeries Family History Family History: Reviewed,noncontributory to illness Social History Smoker: Non-Smoker Alcohol: Denies ETOH Use Drugs: Denies Drug Use Lives In: Home All Other Systems: Reviewed and Negative (Comprehensive systems review obtained and negative except for what is stated in the HPI.) Physical Exam General Appearance: No Apparent Distress, Obese HEENT: Normal ENT Inspection, Pharynx Normal, TMs Normal Neck: Full Range of Motion, Non-Tender, Normal, Normal Inspection Respiratory: Chest Non-Tender, Lungs Clear, No Accessory Muscle Use, No Respiratory Distress, Normal Breath Sounds Cardiovascular: No Edema, No JVD, No Murmur, No Gallop, Normal Peripheral Pulses, Regular Rate/Rhythm Breast Exam: Deferred Gastrointestinal: No Organomegaly, Non Tender, No Pulsatile Mass, Normal Bowel Sounds, Soft Genitalia: Deferred Pelvic: Deferred Rectal: Deferred Extremities: Leg edema (3+ pitting edema ), No calf tenderness, Normal capillary refill, Normal range of motion, Non-tender Musculoskeletal : Apperance: Normal Neurologic: Alert, mobile security architect II-XII nml as Tested, No Motor Deficits, Normal Affect, Normal Mood, No Sensory Deficits Cerebellar Function: Normal Reflexes: Normal Skin: Dry, Normal Color, Warm Lymphatic: No Adenopathy Was a procedure done? Was a procedure done?: No EKG EKG : Pulse Rate (adult): 104 [place]: Normal Cardiac Rhythm: ST Block: None Hypertrophy: None ST: Normal Differential Dx Considerations may include: acute CHF exacerbation, MO, PE, ACS, URI, PNA, viral syndrome, angina, anxiety, medication noncompliance, among others X-Ray, Labs, Meds, VS Vital Signs Date Time Temp Pulse Resp B/P (MAP) Pulse Ox O2 Delivery O2 Flow Rate FiO2 05/27/25 00:05 104 05/27/25 00:00 104 05/26/25 23:40 98.2 102 20 160/102 (121) 94 98.2 Lab Test 05/27/25 01:20 05/27/25 00:17 Range/Units Troponin I High Sensitivity 5 5 </=54 ng/L White Blood Count 7.2 4.4-10.8 10^3/uL Red Blood Count 5.97 H 4.5-5.90 10^6/uL Hemoglobin 14.8 13.5-17.5 g/dL Hematocrit 45.7 41.0-53.0 % Mean Corpuscular Volume 76.6 L 80.0-100.0 fL Mean Corpuscular Hemoglobin 24.9 L 28.0-32.0 pg Mean Corpuscular Hemoglobin Concent 32.5 32.0-36.0 g/dL Red Cell Distribution Width 17.8 H 11.8-14.3 % Platelet Count 267 140-450 10^3/uL Mean Platelet Volume 8.2 6.9-10.8 fL Neutrophils (%) (Auto) 68.3 37.0-80.0 % Lymphocytes (%) (Auto) 17.0 10.0-50.0 % Monocytes (%) (Auto) 10.7 0.0-12.0 % Eosinophils (%) (Auto) 2.9 0.0-7.0 % Basophils (%) (Auto) 1.1 0.0-2.0 % Neutrophils # (Auto) 4.9 1.6-8.6 10 ^3/uL Lymphocytes # (Auto) 1.2 0.4-5.4 10 ^3/uL Monocytes # (Auto) 0.8 0-1.3 10 ^3/uL Eosinophils # (Auto) 0.2 0-0.8 10 ^3/uL Basophils # (Auto) 0.1 0-0.2 10 ^3/uL Nucleated Red Blood Cells 0.2 % Sodium Level 139 136-145 mmol/L Potassium Level 4.0 3.5-5.1 mmol/L Chloride Level 103 98-107 mmol/L Carbon Dioxide Level 31 20-31 mmol/L Anion Gap 5 5-15 Blood Urea Nitrogen 8 L 9-23 mg/dL Creatinine 0.69 L 0.700-1.30 mg/dL Glomerular Filtration Rate Calc 126 >90 mL/min BUN/Creatinine Ratio 11.6 10.0-20.0 Serum Glucose 105 74-106 mg/dL Calcium Level 8.8 8.7-10.4 mg/dL Total Bilirubin 0.3 0.2-1.0 mg/dL Aspartate Amino Transferase (AST) 20 13-40 U/L Alanine Aminotransferase (ALT) 15 7-40 U/L Alkaline Phosphatase 77 46-116 U/L B-Type Natriuretic Peptide 29.20 0-100 pg/mL Total Protein 7.5 5.7-8.2 g/dL Albumin 3.9 3.2-4.8 g/dL X-Ray, Labs, Meds, VS Comment Imaging: X-rays and CT scans were reviewed and interpreted by this provider, imaging shows no fractures and no pathological disease. Pending radiology review. Laboratory: Labs reviewed and interpreted by this provider. No significant abnormalities noted. Patient has prior medical visits reviewed. Med reconciliation performed Vital signs reviewed Time of 1ST Reevaluation: 00:20 Reevaluation 1ST: Unchanged Patient Education/Counseling: Diagnosis, Treatment, Need For Follow Up (Follow up with PCP next available appointment), Other (abena for admission ) Family Education/Counseling: No Family Present Additional Information Previous visits reviewed: May 17, 2025 and December 18, 2024 encounters for acute exacerbation of CHF and hypertensive urgency, respectively. The following tests were ordered, and results were reviewed by me: Additional Information was gathered from interviewing the following independent historians: EMS I reviewed and agreed with the following test results read by other providers: I discussed treatment and results with medical personnel and: patient SEPSIS Sepsis Screen Physician Orders Urinalysis (05/27/25 00:00) Chest Xray 1 View (05/27/25 00:00) Troponin-I Hs (05/27/25 03:00) Electrocardigram (05/27/25 00:09) Vital Signs Date Time Temp Pulse Resp B/P (MAP) Pulse Ox O2 Delivery O2 Flow Rate FiO2 05/27/25 00:05 104 05/27/25 00:00 104 05/26/25 23:40 98.2 102 20 160/102 (121) 94 98.2 Laboratory Tests Test 05/27/25 00:17 White Blood Count 7.2 10^3/uL (4.4-10.8) Departure 1 Departure Time of Disposition: 02:33 Impression: Primary Impression: Medication refill Additional Impression: Shortness of breath Disposition: 01 HOME / SELF CARE / HOMELESS Condition: Stable e-Prescriptions Lisinopril (Lisinopril) 20 Mg Tab 1 TAB PO DAILY, #90 TAB 1 Refill Prov: OZIEL VILLANUEVA 05/27/25 Metoprolol Succinate (Metoprolol Succinate Er) 25 Mg Tab 1 TAB PO DAILY, #90 TAB 1 Refill Prov: OZIEL VILLANUEVA 05/27/25 Furosemide (Lasix) 20 Mg Tb 1 TAB PO DAILY, #90 TAB 1 Refill Prov: OZIEL VILLANUEVA 05/27/25 Discharged With: Self Critical Care Note Critical Care Time?: No Stability Stability form required: No Heart Score Heart Score: Heart Score Response (Comments) Value History Moderate Suspicious 1 EKG Normal 0 Age <45 0 Risk Factors >3 or Hx ASHD 2 Troponin Normal limit 0 Total 3 I personally scribed for OZIEL VILLANUEVA ([email or web address]) on 05/27/25 at 00:05. Electronically submitted by Juan Pate [email or web address]). OZIEL VILLANUEVA May 27, 2025 00:05
[2025-05-27 00:41] LABS: Hemoglobin 14.8 g/dL (13.5-17.5)
[2025-05-27 00:42] LABS: Hematocrit 45.7 % (41.0-53.0); Mean Corpuscular Hemoglobin 24.9 pg (28.0-32.0); Mean Corpuscular Volume 76.6 fL (80.0-100.0); Nucleated Red Blood Cells % 0.2 %
[2025-05-27 00:55] LABS: Alanine Aminotransferase 15 U/L (7-40); Albumin 3.9 g/dL (3.2-4.8); Alkaline Phosphatase 77 U/L (46-116); Anion Gap 5 (5-15); BUN/Creatinine Ratio 11.6 (10.0-20.0); Bilirubin, Total 0.3 mg/dL (0.2-1.0); Calcium 8.8 mg/dL (8.7-10.4); Carbon Dioxide 31 mmol/L (20-31); Chloride 103 mmol/L (98-107); Glucose 105 mg/dL (74-106); Potassium 4.0 mmol/L (3.5-5.1); Sodium 139 mmol/L (136-145); Total Protein 7.5 g/dL (5.7-8.2)
[2025-05-27 01:03] LABS: Blood Urea Nitrogen 8 mg/dL (9-23)
--- NOTE | 2025-05-27 02:17 | DVH ---
CHEST RADIOGRAPH Indication: sob Technique: Single frontal view of the chest was obtained COMPARISON: XY CHEST PORTABLE on DOS: 12/18/24, CHEST PORTABLE on DOS: 01/12/22 FINDINGS: Lines and Tubes: None Lungs: Diffuse increased prominence of the pulmonary vasculature without evidence of focal consolidat ion. Pleura: No definite effusion. No pneumothorax. Cardiomediastinal contours: Cardiomegaly. Bones: Unremarkable IMPRESSION: 1. Cardiomegaly and diffuse increased prominence of the pulmonary vasculature.
[2025-05-27] MEDS ORDERED: FURO1TAB33 PO (02:34)
[2025-05-27] MEDS ORDERED: LISI20TA56 PO (02:34)
[2025-05-27] MEDS ORDERED: METO25TA93 PO (02:34)
[2025-05-27] MEDS: LEVALBUTEROL HCL 1.25 MG/3 ML NEB NEB ONE (02:59)
[2025-05-27] MEDS: LISINOPRIL 20 MG TAB PO ONE (03:30)
[2025-05-27] MEDS: METOPROLOL TARTRATE 25 MG TAB PO ONE (03:31)
[2025-05-27 03:32] VITALS: BP 143/96; PULSE 99; RESP 20; O2SAT 89
--- NOTE | 2025-05-27 05:39 | ECG ---
[facility] Test Date: 2025-05-27 Test Time: 00:00:06 Pat Name: HUSEYIN ROMANO Department: ED Room: Gender: Unemployment Specialist: : 1995 Requested By: OZIEL VILLANUEVA Order Number: [id number] Reading MD: Nate Chaidez Measurements Intervals [place] Rate: 104 P: 34 NV: 204 QRS: -62 QRSD: 86 T: 23 QT: 346 QTc: 455 Interpretive Statements Sinus tachycardia Borderline prolonged NV interval LAD, consider left anterior fascicular block Consider anterior infarct Electronically Signed On 05-28-2025 17:52:08 PDT by Nate Chaidez Please click the below link to view image of tracing.
== END 2025-05-27 03:48 | disposition home or self-care (01) ==
LOC: EDBD 23:39 → ER 23:39
DX: R06.02 Shortness of breath (principal); I11.0 Hypertensive heart disease with heart failure; I50.9 Heart failure, unspecified; E66.01 Morbid (severe) obesity due to excess calories; Z76.0 Encounter for issue of repeat prescription; Z68.45 Body mass index [BMI] 70 or greater, adult; Z79.899 Other long term (current) drug therapy; Z87.898 Personal history of other specified conditions
CPT/HCPCS: 36415; 71045; 80053; 83880; 84484; 85025; 93005; 94640